=== PATIENT | female | born 1930 | race Caucasian/White ===

== ENCOUNTER 2016-08-17 13:55 | Outpatient (CLI) | payer MEDICARE, OTHER | END 2016-08-17 23:59 | DX: I10 Essential (primary) hypertension (principal); E78.5 Hyperlipidemia, unspecified; E03.9 Hypothyroidism, unspecified; E53.9 Vitamin B deficiency, unspecified ==

== ENCOUNTER → 2018-12-12 | Outpatient (CLI) | payer MEDICARE, OTHER | LOC: RT.N 13:00 | PROVIDERS: ATTEND Nurse Practitioner Gerontology | DX: I49.8 Other specified cardiac arrhythmias (principal); R42 Dizziness and giddiness; I10 Essential (primary) hypertension ==

== ENCOUNTER 2019-01-15 21:22 | Outpatient (CLI) | payer MEDICARE, OTHER | END 2019-01-15 21:23 | disposition critical access hospital (66) | LOC: EMS 21:22 | PROVIDERS: ATTEND Surgery | DX: R53.1 Weakness (principal); W19.XXXA Unspecified fall, initial encounter; Y92.009 Unspecified place in unspecified non-institutional (private) residence as the place of occurrence of the external cause | CPT/HCPCS: A0425; A0429 ==

== ENCOUNTER 2019-01-15 21:37 | Emergency (ER) | payer MEDICARE, OTHER ==
[2019-01-15 22:21] LABS: BILIRUBIN,URINE NEGATIVE (NEGATIVE); GLUCOSE, URINE (UA) 100 mg/dL (NEGATIVE); KETONES,URINE (UA) NEGATIVE (NEGATIVE); LEUKOCYTE ESTERASE, URINE NEGATIVE (NEGATIVE); NITRITE,URINE NEGATIVE (NEGATIVE); OCCULT BLOOD,URINE MODERATE (NEGATIVE); PH,URINE 5.5 PH (5.0-7.5); PROTEIN,URINE 100 mg/dL (NEGATIVE); UROBILINOGEN,URINE 0.2 (NORMAL) E.U./dL (NORMAL)
[2019-01-15 22:22] LABS: CLARITY,URINE CLEAR (CLEAR)
[2019-01-15 22:28] LABS: BACTERIA,URINE None Seen /HPF (None Seen); SQUAMOUS EPITHELIAL CELL,UR FEW Squamous (<= Few)
[2019-01-15 22:31] LABS: HGB - HEMOGLOBIN 16.6 g/dL (12.0-16.0); MONOCYTES % (AUTO) 9.1 %
[2019-01-15 22:41] LABS: ALBUMIN 4.3 g/dL (3.2-5.5); ALBUMIN/GLOBULIN RATIO 1.3 (1.0-2.2); CALCIUM 9.9 mg/dL (8.5-10.3); TOTAL PROTEIN 7.7 g/dL (6.7-8.2)
[2019-01-15 22:59] LABS: BASOPHILS # (AUTO) 0.1 10^3/uL (0.0-0.1); BASOPHILS % (AUTO) 0.4 %; EOSINOPHILS % (AUTO) 0.1 %; LYMPHOCYTES # (AUTO) 1.6 10^3/uL (1.5-3.5); LYMPHOCYTES % (AUTO) 11.1 %; MEAN CORPUSCULAR HEMOGLOBIN 29.7 pg (27.0-31.0); MEAN CORPUSCULAR VOLUME 92.8 fL (81.0-99.0); MEAN PLATELET VOLUME 10.7 fL (7.9-10.8); MONOCYTES # (AUTO) 1.3 10^3/uL (0.0-1.0); NEUTROPHILS # (AUTO) 11.1 10^3/uL (1.5-6.6); NEUTROPHILS % (AUTO) 78.7 %; PLT - PLATELET COUNT 143 10^3/uL (130-450); RED BLOOD COUNT 5.59 10^6/uL (4.20-5.40); RED CELL DISTRIBUTION WIDTH 13.4 % (12.0-15.0); WHITE BLOOD COUNT 14.1 x10^3/uL (4.8-10.8)
--- NOTE | 2019-01-15 23:25 | ED Physician Documentation ---
History of Present Illness - Stated complaint Stated Complaint: WEAKNESS/GLF - Chief complaint Chief Complaint: Neuro - History obtained from History obtained from: Patient - History of Present Illness Timing: How many days ago (couple of days ago) Pain level max: 0 Pain level now: 0 Improved by: lying still Worsened by: turning head, sitting up - Additonal information Additional information: c/o vertigo for few days, although she says she saw PMD last week for this. she says she has no medications for vertigo. usually uses cane for ambulation Review of Systems Constitutional: reports: Reviewed and negative Eyes: reports: Reviewed and negative Ears: reports: Reviewed and negative Cardiac: reports: Reviewed and negative Respiratory: reports: Reviewed and negative GI: reports: Reviewed and negative Neurologic: reports: Reviewed and negative PD PAST MEDICAL HISTORY - Past Medical History Past Medical History: Yes Cardiovascular: Hypertension Endocrine/Autoimmune: HyPOthyroidism - Past Surgical History Past Surgical History: No - Present Medications Home Medications: Ambulatory Orders Medication Instructions Recorded Confirmed Levothyroxine Sodium [Synthroid] 100 mcg PO QDAC 01/15/19 01/17/19 Calcium Carbonate/Vitamin D3 1 each PO DAILY 01/17/19 01/17/19 [Calcium 500-Vit D3 200 Tablet] Felodipine [Felodipine ER] 2.5 mg PO DAILY 01/17/19 01/17/19 Glucosamine Sulfate 500 mg PO DAILY 01/17/19 01/17/19 Meclizine HCl 25 mg PO Q8H PRN 01/17/19 01/17/19 - Allergies Allergies/Adverse Reactions: Allergies Allergy/AdvReac Type Severity Reaction Status Date / Time No Known Drug Allergies Allergy Verified 01/17/19 12:42 - Social History Does the pt smoke?: No Smoking Status: Never smoker Does the pt drink ETOH?: No Does the pt have substance abuse?: No - Immunizations Immunizations are current?: Yes - POLST Patient has POLST: Yes PD ED PE NORMAL - Vitals Vital signs reviewed: Yes - General General: Alert and oriented X 3, No acute distress, Well developed/nourished - HEENT HEENT: Atraumatic, PERRL, EOMI, Ears normal - Cardiac Cardiac: RRR, No murmur - Respiratory Respiratory: No respiratory distress, Clear bilaterally - Abdomen Abdomen: Soft, Non tender - Derm Derm: Normal color, Warm and dry - Neuro Neuro: Alert and oriented X 3, 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, No motor deficit, No sensory deficit, Normal speech Eye Opening: Spontaneous Motor: Obeys Commands Verbal: Oriented GCS Score: 15 Results - Vitals Vitals: Oxygen O2 Source Room air - EKG (time done) No standard instances Rate: Rate (enter#) (91) Rhythm: NSR [place]: LAD Intervals: Normal IA QRS: Normal Ischemia: Normal ST segments, Q waves (inferior leads) - Labs Labs: Laboratory Tests 01/15/19 01/15/19 01/15/19 22:10 22:24 22:24 WBC 14.1 H RBC 5.59 H Hgb 16.6 H Hct 51.9 H MCV 92.8 MCH 29.7 MCHC 32.0 RDW 13.4 Plt Count 143 MPV 10.7 Neut # (Auto) 11.1 H Lymph # (Auto) 1.6 [place] # (Auto) 1.3 H Eos # (Auto) 0.0 Baso # (Auto) 0.1 Absolute Nucleated RBC 0.00 Nucleated RBC % 0.0 Sodium 141 Potassium 3.2 L Chloride 100 L Carbon Dioxide 25 Anion Gap 16.0 H BUN 27 H Creatinine 1.0 Estimated GFR (MDRD) 53 L Glucose 150 H Calcium 9.9 Total Bilirubin 2.0 H AST 34 ALT 19 Alkaline Phosphatase 74 Total Creatine Kinase CK-MB (CK-2) Troponin I Total Protein 7.7 Albumin 4.3 Globulin 3.4 Albumin/Globulin Ratio 1.3 Lipase 31 TSH Free T4 T3 Uptake Urine Color YELLOW Urine Clarity CLEAR Urine pH 5.5 Ur Specific [place] 1.025 Urine Protein 100 H Urine Glucose (UA) 100 H Urine Ketones NEGATIVE Urine Occult Blood MODERATE H Urine Nitrite NEGATIVE Urine Bilirubin NEGATIVE Urine Urobilinogen 0.2 (NORMAL) Ur Leukocyte Esterase NEGATIVE Urine RBC 6-10 H Urine WBC 0-3 Ur Squamous Epith Cells FEW Squamous Urine Bacteria None Seen Ur Microscopic Review INDICATED Urine Culture Comments NOT INDICATED 01/15/19 01/15/19 01/15/19 23:55 23:55 23:56 WBC RBC Hgb Hct MCV MCH MCHC RDW Plt Count MPV Neut # (Auto) Lymph # (Auto) [place] # (Auto) Eos # (Auto) Baso # (Auto) Absolute Nucleated RBC Nucleated RBC % Sodium Potassium Chloride Carbon Dioxide Anion Gap BUN Creatinine Estimated GFR (MDRD) Glucose Calcium Total Bilirubin AST ALT Alkaline Phosphatase Total Creatine Kinase 1079 H* CK-MB (CK-2) Troponin I < 0.04 Total Protein Albumin Globulin Albumin/Globulin Ratio Lipase TSH 10.03 H Free T4 0.59 T3 Uptake 42.6 Urine Color Urine Clarity Urine pH Ur Specific [place] Urine Protein Urine Glucose (UA) Urine Ketones Urine Occult Blood Urine Nitrite Urine Bilirubin Urine Urobilinogen Ur Leukocyte Esterase Urine RBC Urine WBC Ur Squamous Epith Cells Urine Bacteria Ur Microscopic Review Urine Culture Comments 01/15/19 23:59 WBC RBC Hgb Hct MCV MCH MCHC RDW Plt Count MPV Neut # (Auto) Lymph # (Auto) [place] # (Auto) Eos # (Auto) Baso # (Auto) Absolute Nucleated RBC Nucleated RBC % Sodium Potassium Chloride Carbon Dioxide Anion Gap BUN Creatinine Estimated GFR (MDRD) Glucose Calcium Total Bilirubin AST ALT Alkaline Phosphatase Total Creatine Kinase CK-MB (CK-2) 16.2 H Troponin I Total Protein Albumin Globulin Albumin/Globulin Ratio Lipase TSH Free T4 T3 Uptake Urine Color Urine Clarity Urine pH Ur Specific [place] Urine Protein Urine Glucose (UA) Urine Ketones Urine Occult Blood Urine Nitrite Urine Bilirubin Urine Urobilinogen Ur Leukocyte Esterase Urine RBC Urine WBC Ur Squamous Epith Cells Urine Bacteria Ur Microscopic Review Urine Culture Comments - Rads (name of study) CT head Radiology: Prelim report reviewed, See rad report PD MEDICAL DECISION MAKING - ED course Complexity details: reviewed results, re-evaluated patient, considered differential, d/w patient ED course: improved after meclizine. reassuring test results Departure - Departure Disposition: 01 Home, Self Care Clinical Impression: Dizziness Condition: Good Health Concerns: dizziness Plan of Treatment: antivertigo medication as needed per prescription Care Goals: resolution of symptoms Assessment: see diagnosis Instructions: ED Vertigo Unspecified Follow-Up: Maryellen Rodriguez ARNP [Primary Care Provider] - Discharge Date/Time: 01/16/19 04:05
[2019-01-15] MEDS ORDERED: MECLIZINE 12.5 MG TABLET PO STA (23:53)
--- NOTE | 2019-01-16 01:03 | CT Report ---
Reason: dizziness Procedure Date: 01/16/2019 Accession Number: [id number] / [id number] Procedure: CT - HEAD WO CPT Code: FULL RESULT: EXAM: CT HEAD EXAM DATE: 01/16/2019 12:42 AM. CLINICAL HISTORY: Dizziness. COMPARISON: 04/24/2009 7:38 PM MRI BRAIN W/O CONTRAST 09/29/2011 1:32 PM MRI ANGIO HEAD W/O CONT 10/17/2011 3:22 PM. TECHNIQUE: Multiaxial CT images were obtained from the foramen magnum to the vertex. Reformats: Sagittal and coronal. IV contrast: None. In accordance with CT protocol optimization, one or more of the following dose reduction techniques were utilized for this exam: automated exposure control, adjustment of mA and/or KV based on patient size, or use of iterative reconstructive technique. FINDINGS: Parenchyma: No intraparenchymal hemorrhage. No evidence of mass, midline shift, or CT findings of acute infarction. Kenny-white differentiation is distinct. Moderate chronic microvascular ischemic change in the supratentorial white matter has progressed compared to the prior CT in 2008. 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 Extraaxial Spaces: Moderate generalized cerebral volume loss has slightly progressed compared to the prior CT and MRI. No subdural or epidural collections identified. A rounded 5 mm hyperdense focus in the posterior left sylvian fissure (image 14, series 3) is unchanged compared to the CT in 2008. 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 Ventricles: No hydrocephalus. Sinuses and Orbits: Imaged paranasal sinuses, orbits, and mastoids show no significant abnormality. Bones: No evidence of fracture or calvarial defect. Other: None. IMPRESSION: 1. No acute intracranial abnormality. 2. No intracranial mass lesion, mass-effect, or hydrocephalus. 3. Moderate generalized cerebral volume loss and chronic microvascular change has progressed compared to the prior MRI and CT. 4. 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 5. A 5 mm hyperdensity in the posterior left sylvian fissure is unchanged compared to the prior CT in 2008. This correlates with a distal left MCA aneurysm seen on the MRA in 2012. RADIA
[2019-01-16 01:24] LABS: T3 UPTAKE 42.6 % (32.0-48.4)
[2019-01-16 01:28] LABS: THYROID STIMULATING HORMONE 10.03 uIU/mL (0.34-5.60)
[2019-01-16 01:30] LABS: FREE T4 (FREE THYROXINE) 0.59 ng/dL (0.58-1.64)
[2019-01-16] MEDS ORDERED: SODIUM CHLORIDE 0.9% 500 ML IV STA (01:58)
[2019-01-16] MEDS ORDERED: MECLIZINE 12.5 MG TABLET PO STA (02:12)
[2019-01-16 03:58] VITALS: BP 156/75
== END 2019-01-16 04:05 | disposition home or self-care (01) ==
LOC: EDUNIT# → ED 21:37
DX: R42 Dizziness and giddiness (principal); I10 Essential (primary) hypertension
CPT/HCPCS: 36415; 70450; 81001; 82550; 82553; 83690; 84439; 84479; 84484; 93005; 96360; 99283; 99285; A9270; 80053; 81003; 84443; 85025; 87086

== ENCOUNTER 2019-01-17 12:19 | Outpatient (CLI) | payer MEDICARE, OTHER | END 2019-01-17 12:20 | disposition critical access hospital (66) | LOC: EMS 12:19 | PROVIDERS: ATTEND Surgery | DX: R53.1 Weakness (principal) | CPT/HCPCS: A0425; A0427 ==

== ENCOUNTER 2019-01-17 12:36 | Inpatient (IN) | payer MEDICARE, OTHER ==
--- NOTE | 2019-01-17 12:45 | ED Physician Documentation ---
History of Present Illness - Stated complaint Stated Complaint: GLF - Chief complaint Chief Complaint: Ext Problem - History obtained from History obtained from: Patient - Additonal information Additional information: Patient is a 88-year-old female with history of recurrent falls presenting from home with likely fall last evening and waking this morning on the bathroom floor. Patient denies any known trauma, fall, or other inciting incident. Patient lives with her adult son, who is also in the ED for other complaints. Patient denies headache, neck pain, back pain, chest or abdominal pain, vo miting, urinary changes, or stool changes. Patient denies any injuries. No other improving or worsening factors noted. No known anticoagulation. Review of Systems Constitutional: denies: Fever Cardiac: denies: Chest pain / pressure Respiratory: denies: Dyspnea, Cough GI: denies: Abdominal Pain, Nausea, Vomiting, Diarrhea : denies: Dysuria Musculoskeletal: denies: Neck pain, Back pain, Extremity pain Neurologic: denies: Generalized weakness, Focal weakness, Numbness, Headache, Head injury, LOC PD PAST MEDICAL HISTORY - Past Medical History Past Medical History: Yes Cardiovascular: Hypertension Endocrine/Autoimmune: HyPOthyroidism - Past Surgical History Past Surgical History: No - Present Medications Home Medications: Ambulatory Orders Medication Instructions Recorded Confirmed Felodipine [Felodipine ER] 01/15/19 Levothyroxine Sodium [Synthroid] 01/15/19 Meclizine HCl 12.5 - 25 mg PO Q6HR PRN #20 tablet 01/16/19 - Allergies Allergies/Adverse Reactions: Allergies Allergy/AdvReac Type Severity Reaction Status Date / Time No Known Drug Allergies Allergy Verified 01/17/19 12:42 - Social History Does the pt smoke?: No Smoking Status: Never smoker Does the pt drink ETOH?: No Does the pt have substance abuse?: No - Immunizations Immunizations are current?: Yes - POLST Patient has POLST: Yes PD ED PE NORMAL - Vitals Vital signs reviewed: Yes - General General: Alert and oriented X 3, No acute distress, Well developed/nourished - HEENT HEENT: Atraumatic, Moist mucous membranes, Pharynx benign, Dentition benign - Neck Neck: No bony TTP - Cardiac Cardiac: RRR, No murmur - Respiratory Respiratory: No respiratory distress, Clear bilaterally - Abdomen Abdomen: Soft, Non tender, Non distended - Derm Derm: Normal color, Warm and dry, No rash - Extremities Extremities: No deformity, No tenderness to palpate - Neuro Neuro: Alert and oriented X 3, No motor deficit, No sensory deficit, Normal speech - Psych Psych: Normal mood, Normal affect Results - Vitals Vitals: Vital Signs - 24 hr 01/17/19 01/17/19 12:36 14:22 Temperature 36.8 C Heart Rate 84 95 Respiratory 16 19 Rate Blood Pressure 172/84 H 159/98 H O2 Saturation 98 97 Oxygen O2 Source Room air - EKG (time done) 1242 Rate: Rate (enter#) (114) Rhythm: Sinus tachycardia Intervals: Prolonged QT Other comments: Other comments (PVCs) - Labs Labs: Laboratory Tests 01/17/19 01/17/19 01/17/19 14:00 14:00 14:00 WBC 15.1 H RBC 5.20 Hgb 15.9 Hct 47.8 H MCV 91.9 MCH 30.6 MCHC 33.3 RDW 13.6 Plt Count 130 MPV 10.9 H Neut # (Auto) 11.9 H Lymph # (Auto) 1.6 [place] # (Auto) 1.4 H Eos # (Auto) 0.0 Baso # (Auto) 0.0 Absolute Nucleated RBC 0.00 Nucleated RBC % 0.0 Sodium 141 Potassium 3.5 Chloride 104 Carbon Dioxide 24 Anion Gap 13.0 BUN 30 H Creatinine 1.0 Estimated GFR (MDRD) 53 L Glucose 142 H Calcium 9.4 Total Bilirubin 1.8 H AST 103 H ALT 52 Alkaline Phosphatase 73 Total Creatine Kinase Troponin I < 0.04 Total Protein 7.3 Albumin 3.8 Globulin 3.5 Albumin/Globulin Ratio 1.1 Lipase 31 Urine Color Urine Clarity Urine pH Ur Specific [place] Urine Protein Urine Glucose (UA) Urine Ketones Urine Occult Blood Urine Nitrite Urine Bilirubin Urine Urobilinogen Ur Leukocyte Esterase Urine RBC Urine WBC Ur Squamous Epith Cells Urine Bacteria Ur Microscopic Review Urine Culture Comments 01/17/19 01/17/19 14:00 14:20 WBC RBC Hgb Hct MCV MCH MCHC RDW Plt Count MPV Neut # (Auto) Lymph # (Auto) [place] # (Auto) Eos # (Auto) Baso # (Auto) Absolute Nucleated RBC Nucleated RBC % Sodium Potassium Chloride Carbon Dioxide Anion Gap BUN Creatinine Estimated GFR (MDRD) Glucose Calcium Total Bilirubin AST ALT Alkaline Phosphatase Total Creatine Kinase 3143 H* Troponin I Total Protein Albumin Globulin Albumin/Globulin Ratio Lipase Urine Color YELLOW Urine Clarity SL Urine pH 5.0 Ur Specific [place] >=1.030 H Urine Protein 100 H Urine Glucose (UA) NEGATIVE Urine Ketones 15 H Urine Occult Blood MODERATE H Urine Nitrite NEGATIVE Urine Bilirubin NEGATIVE Urine Urobilinogen 0.2 (NORMAL) Ur Leukocyte Esterase NEGATIVE Urine RBC 0-5 Urine WBC 11-25 H Ur Squamous Epith Cells NONE SEEN Urine Bacteria Many H Ur Microscopic Review INDICATED Urine Culture Comments INDICATED PD MEDICAL DECISION MAKING - ED course Complexity details: reviewed old records, reviewed results, re-evaluated patient, considered differential, d/w patient, d/w networks computer consultant ED course: Patient presenting after likely ground-level fall and being on the floor overnight. Patient has no complaints do not find obvious signs of trauma, but feel appropriate to perform imaging of chest with x-ray and brain with CT head. Imaging did not find evidence of acute or otherwise complicated findings, but chronic changes and other incidental findings that are similar to previous evaluations. Screening lab work also obtained which reflected troponin within normal limits, leukocytosis, elevated CK. Creatinine within normal limits. Urinalysis found presence of ketones and blood. Patient continued on IV fluids. She did not require other medications at this time. Feel the patient is experiencing rhabdomyolysis given her being on the ground overnight. Nursing staff did attempt to help patient ambulate, but she had significant difficulty. Patient's trichologist is also in the ED. At this time, feel most appropriate to admit for further treatment and work-up. Discussed with hospitalist, who is agreeable to admission. Departure - Departure Disposition: [facility] DC/Xfer Clinical Impression: Rhabdomyolysis Qualifiers: Rhabdomyolysis type: traumatic Encounter type: initial encounter Qualified Code(s): T79.6XXA - Traumatic ischemia of muscle, initial encounter Condition: Fair
[2019-01-17] MEDS ORDERED: SODIUM CHLORIDE 0.9% 1,000 ML IV ONE ×3 (12:51→16:33)
--- NOTE | 2019-01-17 14:01 | CT Report ---
Reason: fall and on floor overnight Procedure Date: 01/17/2019 Accession Number: [id number] / [id number] Procedure: CT - HEAD WO CPT Code: FULL RESULT: EXAM: CT HEAD EXAM DATE: 01/17/2019 01:49 PM. CLINICAL HISTORY: Fall and on floor overnight. Dizziness. COMPARISON: HEAD W/O 01/16/2019 12:36 AM. TECHNIQUE: Multiaxial CT images were obtained from the foramen magnum to the vertex. Reformats: Sagittal and coronal. IV contrast: None. In accordance with CT protocol optimization, one or more of the following dose reduction techniques were utilized for this exam: automated exposure control, adjustment of mA and/or KV based on patient size, or use of iterative reconstructive technique. FINDINGS: Parenchyma: No intraparenchymal hemorrhage. No evidence of mass, midline shift. Kenny-white differentiation is distinct. Extraaxial Spaces: Basal cisterns are patent. No subdural or epidural collections identified. Ventricles: Normal in size and position. Sinuses and Orbits: Imaged paranasal sinuses, orbits, and mastoids show no significant abnormality. Bones: No evidence of fracture or calvarial defect. Other: Stable extracranial 1.1 cm round hyperdense lesion near the vertex on the left, likely a sebaceous cyst. IMPRESSION: No acute intracranial abnormality is detected. RADIA
--- NOTE | 2019-01-17 14:28 | XRAY Report ---
Reason: chest pain Procedure Date: 01/17/2019 Accession Number: [id number] / [id number] Procedure: XR - Chest 1 View X-Ray CPT Code: 49038 FULL RESULT: EXAM: CHEST RADIOGRAPHY EXAM DATE: 01/17/2019 01:45 PM. CLINICAL HISTORY: Chest pain. COMPARISON: 04/24/2009 7:00 PM. TECHNIQUE: 1 view. FINDINGS: The radiograph is markedly limited by apical lordotic positioning, rotation and underpenetration as well as single view AP portable technique. Lungs/Pleura: The left lung base is not effectively evaluated. Visualized aerated right lung and visualized aerated left lung show no consolidation or overt pulmonary edema. Within exam limitations, no large pleural effusion or pneumothorax. Mediastinum: Tortuous aorta is again seen. Size of the cardiac silhouette is not effectively evaluated. Other: None. IMPRESSION: Markedly limited examination as described above with no definite acute cardiopulmonary abnormality detected as seen. Consider formal PA and lateral radiographs. RADIA
[2019-01-17 14:34] LABS: BILIRUBIN,URINE NEGATIVE (NEGATIVE); GLUCOSE, URINE (UA) NEGATIVE (NEGATIVE); KETONES,URINE (UA) 15 mg/dL (NEGATIVE); LEUKOCYTE ESTERASE, URINE NEGATIVE (NEGATIVE); NITRITE,URINE NEGATIVE (NEGATIVE); OCCULT BLOOD,URINE MODERATE (NEGATIVE); PROTEIN,URINE 100 mg/dL (NEGATIVE); UROBILINOGEN,URINE 0.2 (NORMAL) E.U./dL (NORMAL)
[2019-01-17 14:35] LABS: EOSINOPHILS % (AUTO) 0.1 %; MEAN CORPUSCULAR HGB CONC 33.3 g/dL (32.0-36.0); RED CELL DISTRIBUTION WIDTH 13.6 % (12.0-15.0)
[2019-01-17 14:36] LABS: CLARITY,URINE SL (CLEAR)
[2019-01-17 14:39] LABS: BASOPHILS % (AUTO) 0.2 %; HGB - HEMOGLOBIN 15.9 g/dL (12.0-16.0); LYMPHOCYTES # (AUTO) 1.6 10^3/uL (1.5-3.5); LYMPHOCYTES % (AUTO) 10.5 %; MEAN CORPUSCULAR HEMOGLOBIN 30.6 pg (27.0-31.0); MEAN CORPUSCULAR VOLUME 91.9 fL (81.0-99.0); MEAN PLATELET VOLUME 10.9 fL (7.9-10.8); MONOCYTES # (AUTO) 1.4 10^3/uL (0.0-1.0); MONOCYTES % (AUTO) 9.3 %; NEUTROPHILS # (AUTO) 11.9 10^3/uL (1.5-6.6); NEUTROPHILS % (AUTO) 79.1 %; PLT - PLATELET COUNT 130 10^3/uL (130-450); WHITE BLOOD COUNT 15.1 x10^3/uL (4.8-10.8)
[2019-01-17 14:41] LABS: ALBUMIN 3.8 g/dL (3.2-5.5); ALBUMIN/GLOBULIN RATIO 1.1 (1.0-2.2); BILIRUBIN,TOTAL 1.8 mg/dL (0.2-1.0); CALCIUM 9.4 mg/dL (8.5-10.3); TOTAL PROTEIN 7.3 g/dL (6.7-8.2)
[2019-01-17 14:43] LABS: BACTERIA,URINE Many /HPF (None Seen); RBC,URINE 0-5 /HPF (0-5); SQUAMOUS EPITHELIAL CELL,UR NONE SEEN (<= Few)
[2019-01-17] MEDS ORDERED: SODIUM CHLORIDE FLUSH 0.9% 10 ML SYRINGE IVP PRN (17:04)
[2019-01-17] MEDS ORDERED: ONDANSETRON 4 MG/2 ML VIAL IVP PRN (17:04)
[2019-01-17] MEDS ORDERED: MECLIZINE 12.5 MG TABLET PO PRN (17:12)
[2019-01-17] MEDS ORDERED: cefTRIAXone 1 GM VIAL IVP SCH (17:15)
[2019-01-17] MEDS ORDERED: hydrALAZINE INJ 20 MG/ML VIAL IVP PRN (17:16)
--- NOTE | 2019-01-17 17:40 | ED Physician Documentation ---
ED Addendum - Addendum Addendum: 01/17/19 17:39 Patient placed in observation per hospital team.
--- NOTE | 2019-01-17 17:45 | HISTORY & PHYSICAL EXAMINATION ---
Chief Complaint - Chief Complaint Chief Complaint: fall History of Present Illness - Admitted From Admitted From:: ER - History of Present Illness HPI Comment/Other: Ms. Miller is a 88-yrs-old female with a PMH significant of HTN, hypothyroidism, who present ER complain of fall and weakness. pt report she had a fall on Sunday01/15/19 and had a similar fall on last night. She report when she went to bathroom she felt dizziness, then she lean down against the wall to the bathroom ground. she felt very tired and she can not stand up and lay at the bathroom ground. she did not know how she was brought to the ER. She denies dysuria or hematuria. She denies any injury, headache, fever, chill, chest pain, abdominal pain, nausea, vomiting. She report " I am health, I will choose full code now." Pt's Lab test today reveal CK is over 3000, elevated WBC to 15, elevated bili and AST. CT of head and CXR are unremarkable. pt was admitted for rhabdomyolysis, weakness anf fall. History - Past Medical History Cardiovascular: reports: Hypertension Endocrine/Autoimmune: reports: HyPOthyroidism MRSA Hx?: No - Family & Social History Family History Comment/Other: pt had two children, one son is living with her and daughter is also living at the [facility]. she did not remember her parent medical conditions. Social History Notes: she denies smoke, alcohol and drug abuse - POLST Patient has POLST: Yes Meds/Allgy - Home Medications Home Medications: Ambulatory Orders Medication Instructions Recorded Confirmed Levothyroxine Sodium [Synthroid] 100 mcg PO QDAC 01/15/19 01/17/19 Calcium Carbonate/Vitamin D3 1 each PO DAILY 01/17/19 01/17/19 [Calcium 500-Vit D3 200 Tablet] Felodipine [Felodipine ER] 2.5 mg PO DAILY 01/17/19 01/17/19 Glucosamine Sulfate 500 mg PO DAILY 01/17/19 01/17/19 Meclizine HCl 25 mg PO Q8H PRN 01/17/19 01/17/19 - Allergies Allergies/Adverse Reactions: Allergies Allergy/AdvReac Type Severity Reaction Status Date / Time No Known Drug Allergies Allergy Verified 01/17/19 12:42 Review of Systems - Constitutional Constitutional: reports: Fatigue, Weakness. denies: Fever, Chills, Malaise, Poor appetite, Diaphoresis, Night sweats - Eyes Eyes: denies: Pain, Irritation, Amaurosis, Blurred vision, Spots in vision, F ield loss, Vision loss, Dipolpia - Ears, Nose & Throat Ears, Nose & Throat: denies: Ear pain, Hearing loss, Hearing aids, Tinnitus, Vertigo, Nasal pain, Nasal discharge, Nosebleeds, Nasal obstruction, Nasal congestion, Postnasal drainage, Dentures, Sore throat, Hoarseness, Mouth lesions, Bleeding gums - Cardiovascular Cariovascular: denies: Irregular heart rate, Palpitations, Chest pain, Edema, Lightheadedness, Syncope, Exertional dyspnea, Decr. exercise tolerance - Respiratory Respiratory: denies: Cough, Sputum production, Wheezing, Snoring, Hemoptysis, Orthopnea, SOB at rest, SOB with exertion - Gastrointestinal Gastrointestinal: denies: Abdominal pain, Abdominal distention, Constipation, Diarrhea, Change in bowel habits, Rectal bleeding, Black stools, Bloody stools, Nausea, Vomiting, Bile emesis, Dayron blood emesis, Coffee grounds emesis, Reflux/heartburn - Genitourinary Genitourinary: reports: Urgency. denies: Dysuria, Frequency, Hematuria, Incontinence, Flank pain, Nocturia, Urethral discharge - Musculoskeletal Musculoskeletal: denies: Muscle pain, Back pain, Muscle aches, Stiffness, Limited range of motion, Muscle weakness, Gout, Joint pain - Integumentary Integumentary: denies: Rash, Pruritis, Lesions, Dryness, Lumps, Acne, Pigment changes, Nail changes - Neurological Neurological: reports: General weakness, Dizziness. denies: Focal weakness, Headache, Numbness, Memory problems, Pre-existing deficit, Abnormal gait, Seizures, Incoordination, Slurred speech - Psychiatric Psychiatric: denies: Depression, Anxiety, Suicidal, Delusions, Hallucinations, Homicidal - Endocrine Endocrine: denies: Polyuria, Polydypsia, Polyphagia, Intolerance to cold - Hematologic/Lymphatic Hematologic/Lymphatic: denies: Anemia, Bruising, Petechiae, Blood clots, Lymphadenopathy, Bleeding tendencies Exam - Vital Signs Reviewed Vital Signs: Yes Vital Signs: Vital Signs x48h Temp Pulse Resp BP Pulse Ox 01/17/19 14:22 95 19 159/98 H 97 01/17/19 12:36 36.8 C 84 16 172/84 H 98 - Physical Exam General Appearance: positive: Alert, Mild distress. negative: Lethargic Eyes Bilateral: positive: Normal inspection, PERRL, No lid inflammation, Conjunctivae nml ENT: positive: ENT inspection nml, Pharynx nml, No signs of dehydration. negative: Purulent nasal drainage, Pharyngeal erythema, Oral lesions Neck: positive: Nml inspection, Thyroid nml, No JVD, Trachea midline. negative: Thyromegaly, Lymphadenopathy (R), Lymphadenopathy (L), Stiff neck, Swelling/bruising, Tracheal deviation Respiratory: positive: Chest non-tender, No respiratory distress, Breath sounds nml. negative: Wheezes, Rales, Rhonchi Cardiovascular: positive: Regular rate & rhythm, No murmur, No gallop. negative: Irregularly irregular, Extrasystoles, Tachycardia, Bradycardia, JVD present, Systolic murmur, Diastolic murmur Peripheral Pulses: positive: 2+ Abdomen: positive: Non-tender, No organomegaly, Nml bowel sounds, No distention. negative: Tenderness, Guarding, Rebound Back: positive: Nml inspection. negative: CVA tenderness (R), CVA tenderness (L) Skin: positive: Color nml, No rash, Warm, Dry. negative: Cyanosis, Diaphoresis, Pallor Extremities: positive: Non-tender, Nml appearance. negative: Calf tenderness, Joint swelling, Charla's sign/cords Neurologic/Psychiatric: positive: Oriented x3, Sensation nml, Mood/affect nml. negative: Weakness, Sensory loss, Facial droop, Slurred/abnml speech, Depressed mood/affect Sepsis Event Note (H) - Evaluation Current Stage of Sepsis: Ruled out Conclusion/Plan - Problem List (1) Rhabdomyolysis Conclusion/Plan: pt report she stay at ground for overnight after she lean down to the ground. CK is 3100. Creatinine is 1 IVF of NS check CK lab monitor renal function Qualifiers: Rhabdomyolysis type: traumatic Encounter type: initial encounter Qualified Code(s): T79.6XXA - Traumatic ischemia of muscle, initial encounter (2) Dizziness Conclusion/Plan: pt report he felt very dizziness when he went to bathroom and lean down to ground. pt denies chest pain, headache. No new medication she took now check ECHO, followup fall precaution on tele and vital monitor (3) UTI (urinary tract infection) Conclusion/Plan: pt had WBC had 14 on 01/15/19, 15 on today. UA indicate bacteria and high WBC at urine treat with antibiotics until UA culture revealed (4) HTN (hypertension) Conclusion/Plan: pt has elevated BP, reconcile home BP, vital monitor, PRN hydralazine (5) Hypothyroidism Conclusion/Plan: will check TSH, reconcile synthyroid (6) Full code status Conclusion/Plan: pt wish she had full code - Lab Results Fish Bones: 01/17/19 14:00 01/17/19 14:00 Core Measures - Anticipated LOS I expect patient to be DC'd or transferred within 96 hours.: Yes - DVT/VTE - Prophylaxis VTE/DVT Device ordered at admit?: Yes VTE/DVT Prophylaxis med ordered at admit?: Yes
[2019-01-17] MEDS: SODIUM CHLORIDE 0.9% 1,000 ML IV SCH (18:56)
[2019-01-17] MEDS: cefTRIAXone 1 GM in SODIUM CHLORIDE 0.9% MINIBAG 100 ML IV SCH (18:56)
[2019-01-17] MEDS: FELODIPINE ER 2.5 MG TABLET PO SCH (19:40)
[2019-01-17] MEDS: LEVOTHYROXINE 100 MCG TABLET PO SCH (19:41)
[2019-01-17] MEDS: ACETAMINOPHEN 325 MG TABLET PO PRN (21:56)
[2019-01-17] MEDS: FAMOTIDINE 20 MG TABLET PO SCH (21:56)
--- NOTE | 2019-01-17 22:00 | Ultrasound Report ---
Reason: elevated Bili and AST, jaundice Procedure Date: 01/17/2019 Accession Number: [id number] / [id number] Procedure: US - Abdomen Limited CPT Code: FULL RESULT: EXAM: ABDOMEN ULTRASOUND LIMITED, RUQ EXAM DATE: 01/17/2019 06:28 PM. CLINICAL HISTORY: Elevated Bili and AST, jaundice. COMPARISON: None. TECHNIQUE: Real-time scanning was performed with static images obtained. FINDINGS: Liver: Normal in size and echotexture. Right lobe is 12.9 cm. Main portal vein flow: Hepatopetal. Gallbladder: Cholelithiasis. No abnormal wall thickening or sonographic Conley sign. Biliary System: CBD measures 6 mm. No intrahepatic ductal dilatation. Other: Mild hydronephrosis. IMPRESSION: Cholelithiasis. No sonographic evidence for cholecystitis. Mild right hydronephrosis. [facility]
[2019-01-18] MEDS: SODIUM CHLORIDE FLUSH 0.9% 10 ML SYRINGE IVP SCH ×4 (00:56→23:23)
[2019-01-18] MEDS: SODIUM CHLORIDE 0.9% 1,000 ML IV SCH ×3 (03:26→21:44)
[2019-01-18] MEDS: LEVOTHYROXINE 100 MCG TABLET PO SCH (06:10)
[2019-01-18 07:00] LABS: BASOPHILS % (AUTO) 0.3 %; EOSINOPHILS # (AUTO) 0.1 10^3/uL (0.0-0.7); HGB - HEMOGLOBIN 13.6 g/dL (12.0-16.0); LYMPHOCYTES # (AUTO) 1.4 10^3/uL (1.5-3.5); LYMPHOCYTES % (AUTO) 13.8 %; MEAN CORPUSCULAR HEMOGLOBIN 30.4 pg (27.0-31.0); MEAN CORPUSCULAR HGB CONC 32.5 g/dL (32.0-36.0); MEAN CORPUSCULAR VOLUME 93.5 fL (81.0-99.0); MONOCYTES # (AUTO) 1.1 10^3/uL (0.0-1.0); MONOCYTES % (AUTO) 10.8 %; NEUTROPHILS # (AUTO) 7.7 10^3/uL (1.5-6.6); NEUTROPHILS % (AUTO) 73.8 %; PLT - PLATELET COUNT 100 10^3/uL (130-450); RED BLOOD COUNT 4.48 10^6/uL (4.20-5.40); RED CELL DISTRIBUTION WIDTH 13.9 % (12.0-15.0); WHITE BLOOD COUNT 10.4 x10^3/uL (4.8-10.8)
[2019-01-18 07:25] LABS: ALBUMIN 2.9 g/dL (3.2-5.5); BILIRUBIN,TOTAL 1.3 mg/dL (0.2-1.0); CALCIUM 8.3 mg/dL (8.5-10.3); CREATININE 0.9 mg/dL (0.4-1.0); MAGNESIUM 1.6 mg/dL (1.7-2.8); TOTAL PROTEIN 5.7 g/dL (6.7-8.2)
[2019-01-18] MEDS ORDERED: POTASSIUM CHLORIDE 20 MEQ TABLET PO ONE (09:09)
[2019-01-18] MEDS: CHOLECALCIFEROL 1,000 UNIT TABLET PO SCH (09:18)
[2019-01-18] MEDS: FAMOTIDINE 20 MG TABLET PO SCH ×2 (09:18→21:44)
[2019-01-18] MEDS: cefTRIAXone 1 GM in SODIUM CHLORIDE 0.9% MINIBAG 100 ML IV SCH (09:21)
[2019-01-18] MEDS: ENOXAPARIN 40 MG/0.4 ML SYRINGE SUBQ SCH (10:27)
[2019-01-18] MEDS: FELODIPINE ER 2.5 MG TABLET PO SCH (10:27)
[2019-01-18] MEDS ORDERED: MAGNESIUM SULFATE 1 GM in SODIUM CHLORIDE 0.9% 50 ML IV ONE (11:00)
[2019-01-18] MEDS: ACETAMINOPHEN 325 MG TABLET PO PRN (11:15)
--- NOTE | 2019-01-18 12:44 | XRAY Report ---
Reason: SOB Procedure Date: 01/18/2019 Accession Number: [id number] / [id number] Procedure: XR - Chest 1 View X-Ray CPT Code: 79584 FULL RESULT: EXAM: CHEST RADIOGRAPHY EXAM DATE: 01/18/2019 09:37 AM. CLINICAL HISTORY: SOB. COMPARISON: CHEST 1 VIEW 01/17/2019 1:54 PM. TECHNIQUE: 1 view. FINDINGS: Lungs/Pleura: Improved aeration in the left lung base. No new focal consolidation. Mediastinum: Within exam limitations, the cardiomediastinal contour is normal. Other: Surgical clips again noted in the left breast. IMPRESSION: Improved aeration in the left lung base with no new focal consolidation. [facility]
[2019-01-18] MEDS: POLYETHYLENE GLYCOL 3350 17 GM PACKET PO SCH (13:52)
[2019-01-18] MEDS: CALCIUM CARB (OYSTER SHELL) 500 MG TABLET PO SCH (13:53)
[2019-01-18] MEDS ORDERED: POTASSIUM CHLORIDE 10 MEQ CAPSULE PO ONE (14:00)
--- NOTE | 2019-01-18 18:23 | PROVIDER PROGRESS NOTE ---
Subjective - Prog Note Date Prog Note Date: 01/18/19 - Subjective Pt reports feeling: Improved Subjective: pt report she feel better than yesterday, but still feel weakness. she denies fever, chill, chest pain, SOB, abdominal pain and back pain. Current Medications - Current Medications Current Medications: Active Medications Acetaminophen (Tylenol) 650 mg PO Q4HR PRN PRN Reason: Pain 1 to 4 Last Admin: 01/18/19 11:15 Dose: 650 mg Calcium Carbonate/Glycine (Oysco-500) 500 mg PO DAILY [facility] Last Admin: 01/19/19 09:02 Dose: 500 mg Cholecalciferol (Vitamin D3) 1,000 unit PO DAILY [facility] Last Admin: 01/19/19 09:02 Dose: 1,000 unit Enoxaparin Sodium (Lovenox) 40 mg SUBQ DAILY [facility] Last Admin: 01/19/19 07:38 Dose: Not Given Famotidine (Pepcid) 20 mg PO BID [facility] Last Admin: 01/19/19 09:02 Dose: 20 mg Felodipine (Plendil) 2.5 mg PO DAILY [facility] Last Admin: 01/19/19 09:02 Dose: 2.5 mg Hydralazine HCl (Apresoline Inj) 10 mg IVP QID PRN PRN Reason: Hypertensive Emergency Sodium Chloride (Normal Saline 0.9%) 1,000 mls @ 125 mls/hr IV .Q8H [facility] Last Admin: 01/19/19 05:43 Dose: 125 mls/hr Ceftriaxone Sodium 1 gm/ (Sodium Chloride) 100 mls @ 200 mls/hr IV DAILY [facility] Last Infusion: 01/19/19 09:40 Dose: Infused Levothyroxine Sodium (Synthroid) 100 mcg PO QDAC [facility] Last Admin: 01/19/19 05:43 Dose: 100 mcg Meclizine HCl (Antivert) 12.5 mg PO Q6HR PRN PRN Reason: Dizziness Ondansetron HCl (Zofran Inj) 4 mg IVP Q6HR PRN PRN Reason: Nausea / Vomiting Polyethylene Glycol (Miralax) 17 gm PO DAILY [facility] Last Admin: 01/19/19 09:03 Dose: 17 gm Sodium Chloride (Normal Saline Flush 0.9%) 10 ml IVP PRN PRN PRN Reason: NEEDED PER PROVIDER ORDERS Last Admin: 01/17/19 18:56 Dose: 10 ml Sodium Chloride (Normal Saline Flush 0.9%) 10 ml IVP 0100,0900,1700 [facility] Last Admin: 01/19/19 07:36 Dose: Not Given Levothyroxine Sodium [Synthroid] 100 mcg PO QDAC 01/15/19 Calcium Carbonate/Vitamin D3 [Calcium 500-Vit D3 200 Tablet] 1 each PO DAILY 01/17/19 Felodipine [Felodipine ER] 2.5 mg PO DAILY 01/17/19 Glucosamine Sulfate 500 mg PO DAILY 01/17/19 Meclizine HCl 25 mg PO Q8H PRN 01/17/19 Objective - Vital Signs/Intake & Output Reviewed Vital Signs: Yes Vital Signs: Vital Signs x48h Temp Pulse Resp BP Pulse Ox 01/18/19 15:31 36.7 C 89 18 145/72 H 98 01/18/19 12:06 36.5 C 89 19 120/59 L 93 Intake & Output: Intake & Output 01/15/19 01/16/19 01/17/19 01/18/19 23:59 23:59 23:59 23:59 Intake Total 3202.083 2321.167 Output Total 800 Balance 3202.083 1521.167 - Objective General Appearance: positive: No acute distress, Alert. negative: Lethargic Eyes Bilateral: positive: Normal inspection, PERRL, No lid inflammation, Conjunctivae nml ENT: positive: ENT inspection nml, Pharynx nml, No signs of dehydration. negative: Purulent nasal drainage, Pharyngeal erythema, Oral lesions Neck: positive: Nml inspection, Thyroid nml, No JVD, Trachea midline. negative: Thyromegaly, Lymphadenopathy (R), Lymphadenopathy (L), Stiff neck, Swelling/bruising, Tracheal deviation Respiratory: positive: Chest non-tender, No respiratory distress, Breath sounds nml. negative: Wheezes, Rales, Rhonchi Cardiovascular: positive: Regular rate & rhythm, No murmur, No gallop, Irregularly irregular. negative: Extrasystoles, Tachycardia, Bradycardia, JVD present, Systolic murmur, Diastolic murmur Peripheral Pulses: 2+ Radial (R), 2+ Radial (L), 2+ Dorsalis pedis (R), 2+ Dorsalis pedis (L) Abdomen: positive: Non-tender, No organomegaly, Nml bowel sounds, No distention. negative: Tenderness, Guarding, Rebound Back: positive: Nml inspection. negative: CVA tenderness (R), CVA tenderness (L) Skin: positive: Color nml, No rash, Warm, Dry. negative: Cyanosis, Diaphoresis, Pallor Extremities: positive: Non-tender, Full ROM, Nml appearance. negative: Calf tenderness, Joint swelling, Charla's sign/cords Neurologic/Psychiatric: positive: Oriented x3, Sensation nml, Mood/affect nml. negative: Weakness, Sensory loss, Facial droop, Slurred/abnml speech, Depressed mood/affect - Lab Results Fish Bones: 01/19/19 06:25 01/19/19 06:25 Other Labs: Lab Results x24hrs 01/18/19 01/18/19 01/18/19 Range/Units 06:47 06:47 06:47 WBC 10.4 (4.8-10.8) x10^3/uL RBC 4.48 (4.20-5.40) 10^6/uL Hgb 13.6 (12.0-16.0) g/dL Hct 41.9 (37.0-47.0) % MCV 93.5 (81.0-99.0) fL MCH 30.4 (27.0-31.0) pg MCHC 32.5 (32.0-36.0) g/dL RDW 13.9 (12.0-15.0) % Plt Count 100 L (130-450) 10^3/uL MPV 10.0 (7.9-10.8) fL Neut # (Auto) 7.7 H (1.5-6.6) 10^3/uL Lymph # (Auto) 1.4 L (1.5-3.5) 10^3/uL [place] # (Auto) 1.1 H (0.0-1.0) 10^3/uL Eos # (Auto) 0.1 (0.0-0.7) 10^3/uL Baso # (Auto) 0.0 (0.0-0.1) 10^3/uL Absolute Nucleated RBC 0.00 x10^3/uL Nucleated RBC % 0.0 /100WBC Sodium 141 (135-145) mmol/L Potassium 3.0 L (3.5-5.0) mmol/L Chloride 111 (101-111) mmol/L Carbon Dioxide 22 (21-32) mmol/L Anion Gap 8.0 (6-13) BUN 22 H (6-20) mg/dL Creatinine 0.9 (0.4-1.0) mg/dL Estimated GFR (MDRD) 59 L (>89) Glucose 142 H (70-100) mg/dL Calcium 8.3 L (8.5-10.3) mg/dL Magnesium 1.6 L (1.7-2.8) mg/dL Total Bilirubin 1.3 H (0.2-1.0) mg/dL AST 61 H (10-42) IU/L ALT 43 (10-60) IU/L Alkaline Phosphatase 55 (42-121) IU/L Total Creatine Kinase 1210 H* (22-269) IU/L Total Protein 5.7 L (6.7-8.2) g/dL Albumin 2.9 L (3.2-5.5) g/dL Globulin 2.8 (2.1-4.2) g/dL Albumin/Globulin Ratio 1.0 (1.0-2.2) TSH 19.87 H (0.34-5.60) uIU/mL ABX Reporting Has patient been on IV antibiotics over the past 48 hours?: Yes Sepsis Event Note (H) - Evaluation Current Stage of Sepsis: Ruled out Assessment/Plan - Problem List (1) Rhabdomyolysis Impression: 01/18, pt feel better. renal function is stable. CK is down to 1200 from 3100. pt denies muscle pain continue IVF of NS, continue CK monitor pt report she stay at ground for overnight after she lean down to the ground. CK is 3100. Creatinine is 1 IVF of NS check CK lab monitor renal function (2) Dizziness Conclusion/Plan: 01/18 pt report she feel better ECHO reveals unremarkable, normal right/left ventricle it seems from pt's Rhoabdo and dehydration pt report he felt very dizziness when he went to bathroom and lean down to ground. pt denies chest pain, headache. No new medication she took now check ECHO, followup fall precaution on tele and vital monitor (3) UTI (urinary tract infection) Conclusion/Plan: 01/18 UA culture is positive, sensitive is pending continue ROcephin pt had WBC had 14 on 01/15/19, 15 on today. UA indicate bacteria and high WBC at urine treat with antibiotics until UA culture revealed (4) HTN (hypertension) Conclusion/Plan: pt has elevated BP, reconcile home BP, vital monitor, PRN hydralazine (5) Hypothyroidism Conclusion/Plan: will check TSH, reconcile synthyroid (6) weakness consult with PT/OT, nurse support encourage safely ambulation. Qualifiers: Rhabdomyolysis type: traumatic Encounter type: initial encounter Qualified Code(s): T79.6XXA - Traumatic ischemia of muscle, initial encounter
[2019-01-19] MEDS: LEVOTHYROXINE 100 MCG TABLET PO SCH (05:43)
[2019-01-19] MEDS: SODIUM CHLORIDE 0.9% 1,000 ML IV SCH ×3 (05:43→22:02)
[2019-01-19 06:53] LABS: BASOPHILS % (AUTO) 0.4 %; EOSINOPHILS # (AUTO) 0.2 10^3/uL (0.0-0.7); EOSINOPHILS % (AUTO) 2.7 %; HGB - HEMOGLOBIN 12.5 g/dL (12.0-16.0); LYMPHOCYTES # (AUTO) 1.8 10^3/uL (1.5-3.5); LYMPHOCYTES % (AUTO) 21.2 %; MEAN CORPUSCULAR HEMOGLOBIN 30.6 pg (27.0-31.0); MEAN CORPUSCULAR HGB CONC 32.6 g/dL (32.0-36.0); MEAN CORPUSCULAR VOLUME 93.9 fL (81.0-99.0); MEAN PLATELET VOLUME 10.6 fL (7.9-10.8); MONOCYTES % (AUTO) 11.3 %; NEUTROPHILS # (AUTO) 5.4 10^3/uL (1.5-6.6); NEUTROPHILS % (AUTO) 63.8 %; PLT - PLATELET COUNT 107 10^3/uL (130-450); RED BLOOD COUNT 4.08 10^6/uL (4.20-5.40); RED CELL DISTRIBUTION WIDTH 14.1 % (12.0-15.0); WHITE BLOOD COUNT 8.4 x10^3/uL (4.8-10.8)
[2019-01-19 07:07] LABS: ALBUMIN 2.6 g/dL (3.2-5.5); ALBUMIN/GLOBULIN RATIO 0.9 (1.0-2.2); CREATININE 0.6 mg/dL (0.4-1.0); TOTAL PROTEIN 5.4 g/dL (6.7-8.2)
[2019-01-19 07:20] LABS: PLATELET ESTIMATE, MANUAL DECREASED (<130,000) (NORMAL); PLATELET MORPHOLOGY NORMAL APPEARANCE (NORMAL); RBC MORPHOLOGY (MULTIPLE) NORMAL APPEARANCE (NORMAL)
[2019-01-19] MEDS: SODIUM CHLORIDE FLUSH 0.9% 10 ML SYRINGE IVP SCH ×2 (07:36→17:45)
[2019-01-19] MEDS: ENOXAPARIN 40 MG/0.4 ML SYRINGE SUBQ SCH (07:38)
[2019-01-19] MEDS: FELODIPINE ER 2.5 MG TABLET PO SCH (09:02)
[2019-01-19] MEDS: CALCIUM CARB (OYSTER SHELL) 500 MG TABLET PO SCH (09:02)
[2019-01-19] MEDS: CHOLECALCIFEROL 1,000 UNIT TABLET PO SCH (09:02)
[2019-01-19] MEDS: FAMOTIDINE 20 MG TABLET PO SCH ×2 (09:02→20:37)
[2019-01-19] MEDS: POLYETHYLENE GLYCOL 3350 17 GM PACKET PO SCH (09:03)
[2019-01-19] MEDS: cefTRIAXone 1 GM in SODIUM CHLORIDE 0.9% MINIBAG 100 ML IV SCH (09:07)
--- NOTE | 2019-01-19 16:24 | PROVIDER PROGRESS NOTE ---
Subjective - Prog Note Date Prog Note Date: 01/19/19 - Subjective Pt reports feeling: Improved Subjective: pt report she felt tired, and sleep lots. she report she was with PT to the chair. she denies fever,chill, and chest pain, shortness of breath. Current Medications - Current Medications Current Medications: Active Medications Acetaminophen (Tylenol) 650 mg PO Q4HR PRN PRN Reason: Pain 1 to 4 Last Admin: 01/18/19 11:15 Dose: 650 mg Calcium Carbonate/Glycine (Oysco-500) 500 mg PO DAILY [facility] Last Admin: 01/19/19 09:02 Dose: 500 mg Cholecalciferol (Vitamin D3) 1,000 unit PO DAILY [facility] Last Admin: 01/19/19 09:02 Dose: 1,000 unit Enoxaparin Sodium (Lovenox) 40 mg SUBQ DAILY [facility] Last Admin: 01/19/19 07:38 Dose: Not Given Famotidine (Pepcid) 20 mg PO BID [facility] Last Admin: 01/19/19 09:02 Dose: 20 mg Felodipine (Plendil) 2.5 mg PO DAILY [facility] Last Admin: 01/19/19 09:02 Dose: 2.5 mg Hydralazine HCl (Apresoline Inj) 10 mg IVP QID PRN PRN Reason: Hypertensive Emergency Sodium Chloride (Normal Saline 0.9%) 1,000 mls @ 125 mls/hr IV .Q8H [facility] Last Admin: 01/19/19 14:21 Dose: 125 mls/hr Ceftriaxone Sodium 1 gm/ (Sodium Chloride) 100 mls @ 200 mls/hr IV DAILY [facility] Last Infusion: 01/19/19 09:40 Dose: Infused Levothyroxine Sodium (Synthroid) 100 mcg PO QDAC [facility] Last Admin: 01/19/19 05:43 Dose: 100 mcg Meclizine HCl (Antivert) 12.5 mg PO Q6HR PRN PRN Reason: Dizziness Ondansetron HCl (Zofran Inj) 4 mg IVP Q6HR PRN PRN Reason: Nausea / Vomiting Polyethylene Glycol (Miralax) 17 gm PO DAILY [facility] Last Admin: 01/19/19 09:03 Dose: 17 gm Sodium Chloride (Normal Saline Flush 0.9%) 10 ml IVP PRN PRN PRN Reason: NEEDED PER PROVIDER ORDERS Last Admin: 01/17/19 18:56 Dose: 10 ml Sodium Chloride (Normal Saline Flush 0.9%) 10 ml IVP 0100,0900,1700 [facility] Last Admin: 01/19/19 07:36 Dose: Not Given Levothyroxine Sodium [Synthroid] 100 mcg PO QDAC 01/15/19 Calcium Carbonate/Vitamin D3 [Calcium 500-Vit D3 200 Tablet] 1 each PO DAILY 01/17/19 Felodipine [Felodipine ER] 2.5 mg PO DAILY 01/17/19 Glucosamine Sulfate 500 mg PO DAILY 01/17/19 Meclizine HCl 25 mg PO Q8H PRN 01/17/19 Objective - Vital Signs/Intake & Output Reviewed Vital Signs: Yes Vital Signs: Vital Signs x48h Temp Pulse Pulse Resp BP Pulse Ox 01/19/19 16:00 37.1 C 88 18 149/82 H 96 01/19/19 10:56 36.8 C 100 18 94 01/19/19 10:00 36.8 C 100 18 148/68 H 95 Intake & Output: Intake & Output 01/16/19 01/17/19 01/18/19 01/19/19 23:59 23:59 23:59 23:59 Intake Total 3202.083 3381.167 2527.917 Output Total 1000 1650 Balance 3202.083 2381.167 877.917 - Objective General Appearance: positive: No acute distress, Alert. negative: Lethargic Eyes Bilateral: positive: Normal inspection, PERRL, No lid inflammation, C onjunctivae nml ENT: positive: ENT inspection nml, Pharynx nml, No signs of dehydration. negative: Purulent nasal drainage, Pharyngeal erythema, Oral lesions Neck: positive: Nml inspection, Thyroid nml, No JVD. negative: Trachea midline, Thyromegaly, Lymphadenopathy (R), Lymphadenopathy (L), Stiff neck, Swelling/bruising, Tracheal deviation Respiratory: positive: Chest non-tender, No respiratory distress, Breath sounds nml. negative: Wheezes, Rales, Rhonchi Cardiovascular: positive: Regular rate & rhythm, No murmur, No gallop. negative: Irregularly irregular, Extrasystoles, Tachycardia, Bradycardia, JVD present, Systolic murmur, Diastolic murmur Peripheral Pulses: 2+ Radial (R), 2+ Radial (L), 2+ Dorsalis pedis (R), 2+ Dorsalis pedis (L) Abdomen: positive: Non-tender, No organomegaly, Nml bowel sounds, No distention. negative: Tenderness, Guarding, Rebound Back: positive: Nml inspection. negative: CVA tenderness (R), CVA tenderness (L) Skin: positive: Color nml, No rash, Warm, Dry. negative: Cyanosis, Diaphoresis, Pallor Extremities: positive: Non-tender, Full ROM, Nml appearance. negative: Calf tenderness, Joint swelling, Charla's sign/cords Neurologic/Psychiatric: positive: Oriented x3, Sensation nml, Mood/affect nml. negative: Weakness, Sensory loss, Facial droop, Slurred/abnml speech, Depressed mood/affect - Lab Results Fish Bones: 01/19/19 06:25 01/19/19 06:25 Other Labs: Lab Results x24hrs 01/19/19 01/19/19 01/19/19 Range/Units 06:25 06:25 06:25 WBC 8.4 (4.8-10.8) x10^3/uL RBC 4.08 L (4.20-5.40) 10^6/uL Hgb 12.5 (12.0-16.0) g/dL Hct 38.3 (37.0-47.0) % MCV 93.9 (81.0-99.0) fL MCH 30.6 (27.0-31.0) pg MCHC 32.6 (32.0-36.0) g/dL RDW 14.1 (12.0-15.0) % Plt Count 107 L (130-450) 10^3/uL MPV 10.6 (7.9-10.8) fL Neut # (Auto) 5.4 (1.5-6.6) 10^3/uL Lymph # (Auto) 1.8 (1.5-3.5) 10^3/uL [place] # (Auto) 1.0 (0.0-1.0) 10^3/uL Eos # (Auto) 0.2 (0.0-0.7) 10^3/uL Baso # (Auto) 0.0 (0.0-0.1) 10^3/uL Absolute Nucleated RBC 0.00 x10^3/uL Nucleated RBC % 0.0 /100WBC Manual Slide Review Indicated WBC Morphology NORMAL APPEARANCE (NORMAL) Platelet Estimate DECREASED (<130,000) (NORMAL) Platelet Morphology NORMAL APPEARANCE (NORMAL) RBC Morph Micro Appear NORMAL APPEARANCE (NORMAL) Sodium 142 (135-145) mmol/L Potassium 3.7 (3.5-5.0) mmol/L Chloride 109 (101-111) mmol/L Carbon Dioxide 24 (21-32) mmol/L Anion Gap 9.0 (6-13) BUN 13 (6-20) mg/dL Creatinine 0.6 (0.4-1.0) mg/dL Estimated GFR (MDRD) 95 (>89) Glucose 127 H (70-100) mg/dL Calcium 8.0 L (8.5-10.3) mg/dL Total Bilirubin 1.0 (0.2-1.0) mg/dL AST 38 (10-42) IU/L ALT 36 (10-60) IU/L Alkaline Phosphatase 50 (42-121) IU/L Total Creatine Kinase 538 H (22-269) IU/L Total Protein 5.4 L (6.7-8.2) g/dL Albumin 2.6 L (3.2-5.5) g/dL Globulin 2.8 (2.1-4.2) g/dL Albumin/Globulin Ratio 0.9 L (1.0-2.2) Free T4 0.87 (0.58-1.64) ng/dL ABX Reporting Has patient been on IV antibiotics over the past 48 hours?: Yes Sepsis Event Note (H) - Evaluation Current Stage of Sepsis: Ruled out Assessment/Plan - Problem List (1) Rhabdomyolysis Impression: 01/19 CK is down to 538 from 3100 continue IVF and CK monitor 01/18, pt feel better. renal function is stable. CK is down to 1200 from 3100. pt denies muscle pain continue IVF of NS, continue CK monitor pt report she stay at ground for overnight after she lean down to the ground. CK is 3100. Creatinine is 1 IVF of NS check CK lab monitor renal function (2) Dizziness Conclusion/Plan: 01/18 pt report she feel better ECHO reveals unremarkable, normal right/left ventricle it seems from pt's Rhoabdo and dehydration pt report he felt very dizziness when he went to bathroom and lean down to ground. pt denies chest pain, headache. No new medication she took now check ECHO, followup fall precaution on tele and vital monitor (3) UTI (urinary tract infection) Conclusion/Plan: 01/19 UA culture reveals Ecoli, sensitive to all meds continue ROcephin 01/18 UA culture is positive, sensitive is pending continue ROcephin pt had WBC had 14 on 01/15/19, 15 on today. UA indicate bacteria and high WBC at urine treat with antibiotics until UA culture revealed (4) HTN (hypertension) Conclusion/Plan: pt has elevated BP, reconcile home BP, vital monitor, PRN hydralazine (5) Hypothyroidism Conclusion/Plan: will check TSH, reconcile synthyroid (6) weakness 01/19 continue PT/OT. encourage pt ambulate safely. consult with PT/OT, nurse support encourage safely ambulation. Qualifiers: Rhabdomyolysis type: traumatic Encounter type: initial encounter Qualified Code(s): T79.6XXA - Traumatic ischemia of muscle, initial encounter
[2019-01-20] MEDS: SODIUM CHLORIDE FLUSH 0.9% 10 ML SYRINGE IVP SCH ×2 (05:55→08:58)
[2019-01-20] MEDS: SODIUM CHLORIDE 0.9% 1,000 ML IV SCH ×2 (06:14→06:15)
[2019-01-20] MEDS: LEVOTHYROXINE 100 MCG TABLET PO SCH (06:19)
[2019-01-20 06:50] LABS: BASOPHILS % (AUTO) 0.1 %; EOSINOPHILS # (AUTO) 0.2 10^3/uL (0.0-0.7); HGB - HEMOGLOBIN 12.8 g/dL (12.0-16.0); LYMPHOCYTES # (AUTO) 1.4 10^3/uL (1.5-3.5); LYMPHOCYTES % (AUTO) 18.4 %; MEAN CORPUSCULAR HEMOGLOBIN 30.5 pg (27.0-31.0); MEAN CORPUSCULAR HGB CONC 32.6 g/dL (32.0-36.0); MEAN CORPUSCULAR VOLUME 93.8 fL (81.0-99.0); MEAN PLATELET VOLUME 10.7 fL (7.9-10.8); MONOCYTES % (AUTO) 12.5 %; NEUTROPHILS % (AUTO) 65.2 %; PLT - PLATELET COUNT 102 10^3/uL (130-450); RED BLOOD COUNT 4.19 10^6/uL (4.20-5.40); RED CELL DISTRIBUTION WIDTH 13.8 % (12.0-15.0); WHITE BLOOD COUNT 7.7 x10^3/uL (4.8-10.8)
[2019-01-20 07:04] LABS: ALBUMIN 2.7 g/dL (3.2-5.5); BILIRUBIN,TOTAL 1.2 mg/dL (0.2-1.0); CALCIUM 8.1 mg/dL (8.5-10.3); CREATININE 0.6 mg/dL (0.4-1.0); TOTAL PROTEIN 5.5 g/dL (6.7-8.2)
[2019-01-20] MEDS ORDERED: POTASSIUM CHLORIDE 20 MEQ TABLET PO ONE (07:28)
[2019-01-20] MEDS ORDERED: SODIUM CHLORIDE 0.9% 1,000 ML IV SCH (07:33)
[2019-01-20] MEDS: FAMOTIDINE 20 MG TABLET PO SCH (08:56)
[2019-01-20] MEDS: FELODIPINE ER 2.5 MG TABLET PO SCH (08:56)
[2019-01-20] MEDS: CHOLECALCIFEROL 1,000 UNIT TABLET PO SCH (08:57)
[2019-01-20] MEDS: CALCIUM CARB (OYSTER SHELL) 500 MG TABLET PO SCH (08:57)
[2019-01-20] MEDS: ENOXAPARIN 40 MG/0.4 ML SYRINGE SUBQ SCH (08:57)
[2019-01-20] MEDS: POLYETHYLENE GLYCOL 3350 17 GM PACKET PO SCH (08:57)
[2019-01-20] MEDS: cefTRIAXone 1 GM in SODIUM CHLORIDE 0.9% MINIBAG 100 ML IV SCH (08:57)
[2019-01-20] MEDS ORDERED: DOCUSATE SODIUM 250 MG CAPSULE PO SCH (09:00)
[2019-01-20] MEDS ORDERED: SENNA 8.6 MG TABLET PO SCH (09:00)
--- NOTE | 2019-01-20 09:04 | XRAY Report ---
Reason: SOB Procedure Date: 01/20/2019 Accession Number: [id number] / [id number] Procedure: XR - Chest 1 View X-Ray CPT Code: 32376 FULL RESULT: EXAM: CHEST RADIOGRAPHY EXAM DATE: 01/20/2019 08:16 AM. CLINICAL HISTORY: SOB. COMPARISON: 01/18/2019, 01/17/2019 chest x-ray TECHNIQUE: 1 view. FINDINGS: Lungs/Pleura: No focal opacities evident. No pleural effusion. No pneumothorax. Mediastinum: Within exam limitations, the cardiomediastinal contour is normal. Other: Surgical clips left breast. IMPRESSION: Clear lungs. No acute findings. [facility]
--- NOTE | 2019-01-20 13:14 | Discharge Plan ---
"Discharge Plan for SNF / [facility] - Discharge Plan And Transition Orders Problem Reviewed?: Yes Disposition: 03 SNF DC/Xfer Condition: Poor Allergies and Adverse Reactions: Allergies Allergy/AdvReac Type Severity Reaction Status Date / Time No Known Drug Allergies Allergy Verified 01/17/19 12:42 Health Concerns: fall, weakness Plan of Treatment: PT/OT continue training for pt Care Goals: stabilization of pt's medical conditions Assessment: pt's CXR, CT of head, US of abdomen, ECHO are unremarkable. - SNF / PENITENTIARY Transition Orders Admit to (Facility): [facility] Under the care of (Name): medical provider of [facility] Discharge Diagnosis: Rhabdomyolysis, dizziness, weakness and fall, UTI, HTN, hypothyroidism, Medicare Certification Statement: I certify that [facility] care is medically necessary on a continuing basis for any of the conditions for which she/he is receiving care during hospitalization. Notify PCP of admission and forward orders to primary provider for signature. Weight on admission and: Daily Call PCP immediately if weight increases by: 2 kg Other Notification Orders: Call PCP immediately if patient develops dyspnea, chest pain/tightness or edema. House Bowel Program: Yes Additional Bowel Program Orders: If no BM after 2 days, nurse may give M.O.M. 30ml PO PRN and/or ducolax Supp 1 NM and/or KELLY 250mg P.O., and/or senna 1-2 tabs PO. On day 3 nurse may give repeat above order until residents constipation is resolved. Annual Influenza Vaccine (between Mar 23 and October 20): Yes Two-step PPD per [facility] [phone] or approved exception documents: Yes Treatments & Other Orders: pt may followup medical provider at [facility] when pt is arrivat to. Pt may continue to have PT/OT/ST evaluation Oxygen Orders: 2 liter on NC Medication Orders: PLEASE REFER TO THE DISCHARGE MEDICATION LIST. Insulin Orders?: No - Medications New Prescriptions: Cephalexin [Keflex] 500 mg PO BID #14 capsule Saccharomyces Boulardii [Florastor] 250 mg PO DAILY #7 capsule - Diet Type: Geriatric Texture: Puree Liquids: Pevely thick May have monthly special meal: Yes - Therapies | Activity Therapy: Evaluation | Treat if indicated: PT, OT, Swallowing / ST Rehabilitation Potential: Maximize functional status Activity: Activity as Tolerated Additional Instructions: pt may followup medical provider at [facility] when pt is arrivat to. Pt may continue to have PT/OT/ST evaluation"
--- NOTE | 2019-01-20 13:30 | DISCHARGE SUMMARY ---
Discharge Summary Discharge Date: 01/20/19 Discharging Provider: MARLOW Primary Care Provider: Maryellen Carbajal Condition at Discharge: Poor Discharge Disposition: 03 SNF DC/Xfer Discharge Facility Name: [facility] - DIAGNOSES Admission Diagnoses: (1) Rhabdomyolysis (2) Dizziness (3) UTI (urinary tract infection) (4) HTN (hypertension) (5) Hypothyroidism Discharge Diagnoses with Status of Each Condition: (1) Rhabdomyolysis today pt's CK is down to 270, pt has stable kidney function. pt denies muscle pain or tenderness. pt had no injury from pt's lean down fall. (2) Dizziness great improved. pt's ECHO is unremarkable. continue PT/OT/ST in [facility] (3) UTI (urinary tract infection) UA culture reveals positive for Ecoli, it is sensitive to all tested antibiotics pt is prescribed antibiotics ceftin for continuing the treatment course. (4) HTN (hypertension) stable, resume home BP meds, followup PCP (5) Hypothyroidism normal TSH, continue home meds, followup PCP (6) weakness improved. continue in [facility] training - HPI History of Present Illness: Ms. Miller is a 88-yrs-old female with a PMH significant of HTN, hypothyroidism, who present ER complain of fall and weakness. pt report she had a fall on Sunday01/15/19 and had a similar fall on last night. She report when she went to bathroom she felt dizziness, then she lean down against the wall to the bathroom ground. she felt very tired and she can not stand up and lay at the b athroom ground. she did not know how she was brought to the ER. She denies dysuria or hematuria. She denies any injury, headache, fever, chill, chest pain, abdominal pain, nausea, vomiting. She report " I am health, I will choose full code now." Pt's Lab test today reveal CK is over 3000, elevated WBC to 15, elevated bili and AST. CT of head and CXR are unremarkable. pt was admitted for rhabdomyolysis, weakness anf fall. - HOSPITAL COURSE Hospital Course: pt was admitted for rhabdomyolysis, dizziness, weakness and fall. pt denies injury from leaning fall. pt was found to have over 3000 CK. pt was treated IVF. ECHO reveals unremarkable. pt was evaluated and treated by PT/OT. pt was recommended for SNF for her weakness. pt was also found to have UTI. pt was treated with Rocephine. UA culture reveals positive Ecoli and sensitive to all tested antibiotics. pt is prescribed antibiotics for continuing the treatment course. - ALLERGIES Allergies/Adverse Reactions: Allergies Allergy/AdvReac Type Severity Reaction Status Date / Time No Known Drug Allergies Allergy Verified 01/17/19 12:42 - MEDICATIONS Home Medications: Ambulatory Orders Medication Instructions Recorded Confirmed Levothyroxine Sodium [Synthroid] 100 mcg PO QDAC 01/15/19 01/17/19 Calcium Carbonate/Vitamin D3 1 each PO DAILY 01/17/19 01/17/19 [Calcium 500-Vit D3 200 Tablet] Felodipine [Felodipine ER] 2.5 mg PO DAILY 01/17/19 01/17/19 Glucosamine Sulfate 500 mg PO DAILY 01/17/19 01/17/19 Meclizine HCl 25 mg PO Q8H PRN 01/17/19 01/17/19 Cephalexin [Keflex] 500 mg PO BID #14 capsule 01/20/19 Saccharomyces Boulardii [Florastor] 250 mg PO DAILY #7 capsule 01/20/19 - PHYSICAL EXAM AT DISCHARGE General Appearance: positive: No acute distress, Alert. negative: Lethargic Eyes Bilateral: positive: Normal inspection, PERRL, No lid inflammation, Conjunctivae nml ENT: positive: ENT inspection nml, Pharynx nml, No signs of dehydration. negative: Purulent nasal drainage, Pharyngeal erythema, Oral lesions Neck: positive: Nml inspection, Thyroid nml, No JVD, Trachea midline. negative: Thyromegaly, Lymphadenopathy (R), Lymphadenopathy (L), Stiff neck, Swelling/bruising, Tracheal deviation Respiratory: positive: Chest non-tender, No respiratory distress, Breath sounds nml. negative: Wheezes, Rales, Rhonchi Cardiovascular: positive: Regular rate & rhythm, No murmur, No gallop. negative: Irregularly irregular, Extrasystoles, Tachycardia, Bradycardia, JVD present, Systolic murmur, Diastolic murmur Peripheral Pulses: positive: 2+ Abdomen: positive: Non-tender, No organomegaly, Nml bowel sounds, No distention. negative: Tenderness, Guarding, Rebound Back: positive: Nml inspection. negative: CVA tenderness (R), CVA tenderness (L) Skin: positive: Color nml, No rash, Warm, Dry. negative: Cyanosis, Diaphoresis, Pallor Extremities: positive: Non-tender, Nml appearance. negative: Calf tenderness, Joint swelling, Charla's sign/cords Neurologic/Psychiatric: positive: Oriented x3, Sensation nml, Mood/affect nml. negative: Weakness, Sensory loss, Facial droop, Slurred/abnml speech, Depressed mood/affect - LABS Result Diagrams: 01/20/19 06:05 01/20/19 06:05 - SEPSIS Current Stage of Sepsis: Ruled out - FOLLOW UP Follow Up: pt may followup medical provider at [facility] when pt is arrivat to. Pt may continue to have PT/OT/ST evaluation and treatment - TIME SPENT Time Spent in Discharge (Minutes): 55
[2019-01-20 14:26] VITALS: BP 137/75
== END 2019-01-20 16:00 | DRG 565 ==
LOC: EDUNIT# → ED 12:36 → OBS 17:04 → OBSVTOIN 01-18 10:28 → MS2 01-18 15:54
PROVIDERS: ADMIT Nurse Practitioner Gerontology; ATTEND Nurse Practitioner Gerontology
DX: T79.6XXA Traumatic ischemia of muscle, initial encounter (principal); N39.0 Urinary tract infection, site not specified; B96.20 Unspecified Escherichia coli [E. coli] as the cause of diseases classified elsewhere; R31.29 Other microscopic hematuria; W18.39XA Other fall on same level, initial encounter; Y92.002 Bathroom of unspecified non-institutional (private) residence as the place of occurrence of the external cause; R42 Dizziness and giddiness; Z74.2 Need for assistance at home and no other household member able to render care; E86.0 Dehydration; I10 Essential (primary) hypertension; E03.9 Hypothyroidism, unspecified; Z79.899 Other long term (current) drug therapy; Z91.81 History of falling
CPT/HCPCS: 36415; 70450; 71045; 76705; 80053; 81001; 82550; 83690; 83735; 84439; 84443; 84484; 85025; 87086; 87181; 92610; 93005; 93306; 96361; 96365; 96366; 96372; 97162; 97166; 97530; 99284; A9270; G0378; J1650; J7040; 81003; 96360; 99283

== ENCOUNTER 2019-01-31 08:00 | Outpatient (CLI) | payer MEDICARE, OTHER | END 2019-01-31 08:01 | disposition home or self-care (01) | LOC: LAB.R 08:00 | DX: E03.9 Hypothyroidism, unspecified (principal) | CPT/HCPCS: 84443 ==

== ENCOUNTER 2019-02-14 16:10 | Outpatient (CLI) | payer MEDICARE, OTHER ==
[2019-02-14 21:05] LABS: BASOPHILS % (AUTO) 0.4 %; EOSINOPHILS # (AUTO) 0.3 10^3/uL (0.0-0.7); EOSINOPHILS % (AUTO) 3.3 %; HGB - HEMOGLOBIN 12.3 g/dL (12.0-16.0); LYMPHOCYTES # (AUTO) 1.6 10^3/uL (1.5-3.5); LYMPHOCYTES % (AUTO) 20.5 %; MEAN CORPUSCULAR HEMOGLOBIN 29.1 pg (27.0-31.0); MEAN CORPUSCULAR HGB CONC 31.1 g/dL (32.0-36.0); MEAN CORPUSCULAR VOLUME 93.6 fL (81.0-99.0); MONOCYTES # (AUTO) 0.9 10^3/uL (0.0-1.0); MONOCYTES % (AUTO) 11.4 %; NEUTROPHILS # (AUTO) 4.9 10^3/uL (1.5-6.6); NEUTROPHILS % (AUTO) 63.9 %; PLT - PLATELET COUNT 212 10^3/uL (130-450); RED BLOOD COUNT 4.22 10^6/uL (4.20-5.40); RED CELL DISTRIBUTION WIDTH 13.9 % (12.0-15.0); WHITE BLOOD COUNT 7.7 x10^3/uL (4.8-10.8)
== END 2019-02-14 23:59 | disposition home or self-care (01) ==
LOC: LAB.R 16:10
DX: R42 Dizziness and giddiness (principal); D64.9 Anemia, unspecified
CPT/HCPCS: 80053; 85025

== ENCOUNTER 2019-02-17 19:20 | Outpatient (CLI) | payer MEDICARE, OTHER ==
[2019-02-17 21:42] LABS: ALBUMIN 3.2 g/dL (3.2-5.5); ALBUMIN/GLOBULIN RATIO 0.9 (1.0-2.2); BILIRUBIN,TOTAL 0.5 mg/dL (0.2-1.0); CALCIUM 9.4 mg/dL (8.5-10.3); CREATININE 0.9 mg/dL (0.4-1.0); TOTAL PROTEIN 6.7 g/dL (6.7-8.2)
== END 2019-02-17 23:59 | disposition home or self-care (01) ==
LOC: LAB.R 19:20
DX: R42 Dizziness and giddiness (principal)
CPT/HCPCS: 80053

== ENCOUNTER 2019-03-28 08:00 | Outpatient (CLI) | payer MEDICARE, OTHER ==
[2019-03-28 22:35] LABS: CALCIUM 9.5 mg/dL (8.5-10.3); CREATININE 0.9 mg/dL (0.4-1.0)
== END 2019-03-28 23:59 | disposition home or self-care (01) ==
LOC: LAB.R 08:00
DX: I63.9 Cerebral infarction, unspecified (principal); E03.9 Hypothyroidism, unspecified
CPT/HCPCS: 80048; 84443

== ENCOUNTER 2019-08-12 15:29 | Outpatient (CLI) | payer MEDICARE, OTHER | END 2019-08-12 23:59 | disposition home or self-care (01) | LOC: LAB.N 15:29 | PROVIDERS: ATTEND Nurse Practitioner Gerontology | DX: R06.89 Other abnormalities of breathing (principal); E03.9 Hypothyroidism, unspecified | CPT/HCPCS: 36415; 83880; 84443 ==

== ENCOUNTER 2021-06-03 13:33 | Outpatient (CLI) | payer MEDICARE, OTHER | END 2021-06-03 23:59 | disposition critical access hospital (66) | LOC: EMS 13:33 | DX: R41.0 Disorientation, unspecified (principal) | CPT/HCPCS: A0425; A0429 ==

== ENCOUNTER 2021-06-03 13:49 | Inpatient (IN) | payer MEDICARE, OTHER ==
--- NOTE | 2021-06-03 14:15 | ED Physician Documentation ---
History of Present Illness - Stated complaint Stated Complaint: WEAKNESS - Chief complaint Chief Complaint: Neuro - Additonal information Additional information: 89-year-old female presents the emergency department for evaluation of increased confusion, refusal to take her meds as well as right-sided abdominal pain. History is limited as patient has baseline dementia. She presents from the [facility]. She was noted to be hypoxic on room air with a saturation of 89. 2 L nasal cannula caused resultant rise to 96%. Days. History is obtained from the chart as well as EMS. Patient is confused to time and place No reported falls or trauma. No obvious external signs of trauma/bruising. Pt is not anticoagulated PMH: Hypertension, dementia, CVA with residual left-sided deficits Patient is a full code Review of Systems Unable to obtain: Dementia, Other (obtained from chart, ems; pt non contribnutary) PD PAST MEDICAL HISTORY - Past Medical History Cardiovascular: Hypertension Neuro: CVA Endocrine/Autoimmune: HyPOthyroidism Musculoskeletal: Osteoarthritis, Fatigue, Chronic back pain - Past Surgical History Past Surgical History: No /MANAGER RELATIONSHIP: Other - Present Medications Home Medications: Ambulatory Orders Medication Instructions Recorded Confirmed Levothyroxine Sodium [Synthroid] 100 mcg PO QDAC 01/15/19 01/17/19 Calcium Carbonate/Vitamin D3 1 each PO DAILY 01/17/19 01/17/19 [Calcium 500-Vit D3 200 Tablet] Felodipine [Felodipine ER] 2.5 mg PO DAILY 01/17/19 01/17/19 Glucosamine Sulfate 500 mg PO DAILY 01/17/19 01/17/19 Meclizine HCl 25 mg PO Q8H PRN 01/17/19 01/17/19 Saccharomyces Boulardii [Florastor] 250 mg PO DAILY #7 capsule 01/20/19 cephALEXin [Keflex] 500 mg PO BID #14 capsule 01/20/19 - Allergies Allergies/Adverse Reactions: Allergies Allergy/AdvReac Type Severity Reaction Status Date / Time No Known Drug Allergies Allergy Verified 06/03/21 14:08 - Social History Does the pt smoke?: No Smoking Status: Never smoker Does the pt drink ETOH?: No Does the pt have substance abuse?: No - Immunizations Immunizations are current?: Yes - POLST Patient has POLST: Yes PD ED PE EXPANDED - General General: Alert, No acute distress - HEENT HEENT: Other (Dry oral mucosa and mucous membranes. Chapped lips.) - Cardiac Cardiac: Regular Rate, Radial strong equal, Pedal strong equal, Cap refill < 2 sec - Respiratory Respiratory: Clear to ausultation maurice. No: Distress, Labored - Abdomen Abdomen: Normal Bowel sounds, Tender to palpation (Generalized abdominal tenderness without guarding or rebound.) - Back Back: No: Vertebral tenderness, Soft tissue tenderness - Derm Derm: Normal color, Warm and dry. No: Rash, Abrasion (s), Bruising - Neuro Neuro: Confused, CNII-XII intact - GCS Eye Opening: Spontaneous Motor: Obeys Commands Verbal: Confused Total: 14 Results - Vitals Vitals: Vital Signs - 24 hr 06/03/21 06/03/21 13:53 14:33 Temperature 37.6 C Heart Rate 101 H 99 Respiratory 16 17 Rate Blood Pressure 154/109 H 154/108 H O2 Saturation 89 L 99 Oxygen O2 Source Room air - EKG (time done) 1438 Rate: Rate (enter#) (101) Rhythm: NSR [place]: Other Intervals: Normal [place]. No: Prolonged QT QRS: Normal Ischemia: Q waves (inferior) Compare to prior EKG: Changed from prior EKG Computer interpretation: Agree with computer - Labs Labs: Laboratory Tests 06/03/21 06/03/21 06/03/21 14:17 14:17 14:17 WBC 11.6 H RBC 5.77 H Hgb 16.4 H Hct 52.3 H MCV 90.6 MCH 28.4 MCHC 31.4 L RDW 15.4 H Plt Count 151 MPV 10.1 Neut # (Auto) 8.6 H Lymph # (Auto) 1.7 [place] # (Auto) 1.2 H Eos # (Auto) 0.1 Baso # (Auto) 0.0 Absolute Nucleated RBC 0.00 Nucleated RBC % 0.0 Sodium 148 H Potassium 4.1 Chloride 106 Carbon Dioxide 27 Anion Gap 15.0 H BUN 41 H Creatinine 1.1 H Estimated GFR (MDRD) 47 L Glucose 152 H Lactic Acid Calcium 10.1 Total Bilirubin 1.4 H AST 15 ALT 17 Alkaline Phosphatase 82 Total Creatine Kinase 84 Troponin I High Sens 12.2 B-Natriuretic Peptide Total Protein 8.2 Albumin 4.2 Globulin 4.0 Albumin/Globulin Ratio 1.1 Lipase 38 TSH Urine Color Urine Clarity Urine pH Ur Specific [employer] [employer] Urine Protein Urine Glucose (UA) Urine Ketones Urine Occult Blood Urine Nitrite Urine Bilirubin Urine Urobilinogen Ur Leukocyte Esterase Ur Microscopic Review Urine Culture Comments 06/03/21 06/03/21 06/03/21 14:17 14:17 14:30 WBC RBC Hgb Hct MCV MCH MCHC RDW Plt Count MPV Neut # (Auto) Lymph # (Auto) [place] # (Auto) Eos # (Auto) Baso # (Auto) Absolute Nucleated RBC Nucleated RBC % Sodium Potassium Chloride Carbon Dioxide Anion Gap BUN Creatinine Estimated GFR (MDRD) Glucose Lactic Acid 1.5 Calcium Total Bilirubin AST ALT Alkaline Phosphatase Total Creatine Kinase Troponin I High Sens B-Natriuretic Peptide 40 Total Protein Albumin Globulin Albumin/Globulin Ratio Lipase TSH 0.87 Urine Color Urine Clarity Urine pH Ur Specific [employer] [employer] Urine Protein Urine Glucose (UA) Urine Ketones Urine Occult Blood Urine Nitrite Urine Bilirubin Urine Urobilinogen Ur Leukocyte Esterase Ur Microscopic Review Urine Culture Comments 06/03/21 14:45 WBC RBC Hgb Hct MCV MCH MCHC RDW Plt Count MPV Neut # (Auto) Lymph # (Auto) [place] # (Auto) Eos # (Auto) Baso # (Auto) Absolute Nucleated RBC Nucleated RBC % Sodium Potassium Chloride Carbon Dioxide Anion Gap BUN Creatinine Estimated GFR (MDRD) Glucose Lactic Acid Calcium Total Bilirubin AST ALT Alkaline Phosphatase Total Creatine Kinase Troponin I High Sens B-Natriuretic Peptide Total Protein Albumin Globulin Albumin/Globulin Ratio Lipase TSH Urine Color YELLOW Urine Clarity CLEAR Urine pH 5.5 Ur Specific [employer] [employer] 1.025 Urine Protein TRACE Urine Glucose (UA) NEGATIVE Urine Ketones 15 H Urine Occult Blood NEGATIVE Urine Nitrite NEGATIVE Urine Bilirubin NEGATIVE Urine Urobilinogen 1 (NORMAL) Ur Leukocyte Esterase NEGATIVE Ur Microscopic Review NOT INDICATED Urine Culture Comments NOT INDICATED - Rads (name of study) CXR Radiology: Final report received (Minimal hazy opacity in the right mid lung field. This could represent atelectasis or less likely infectious/inflammatory etiology.) CT head Radiology: Final report received (Evidence of acute intracranial pathology. Diffuse atrophy and extensive white matter chronic small vessel ischemic changes.) CT pulm angio Radiology: Prelim report reviewed, Final report received CT abd Radiology: Prelim report reviewed, Final report received PD MEDICAL DECISION MAKING - ED course Complexity details: reviewed results, re-evaluated patient, considered differential ED course: 89-year-old female who has a history of baseline dementia (FULL CODE) presents to the emergency department from her care facility [facility] for evaluation of acutely altered mental status, refusal to take her medications as well as acute hypoxia. No previous history of COPD emphysema or oxygen requirements. However on room air saturations were 88 to 90%. Saturations improved to 99% with 2 L nasal cannula. Screening labs did not show any acute worrisome abnormality. High-sensitivity troponin and BNP were negative. Screening chest x-ray without acute focal opacity. CT head and abdomen without acute findings. Therefore CT angio of the chest was completed which unfortunately shows extensive bilateral pulmonary emboli involving both lower lobes of the lungs. There is early right heart strain and possible early infarct. Patient was given initial dose 1 mg/kg of Lovenox. Pt PESI score 169, putting her at very high risk for mortality Case was discussed with Dr. Evelyne Santillan who graciously agrees to admit the patient I did attempt to contact pt's daughter multiple time to discuss the ED visit and diagnosis, however no answer to either listed number. VM left. Departure - Departure Disposition: 66 [facility] DC/Xfer Clinical Impression: Pulmonary embolism and infarction, Hypoxia Dementia Qualifiers: Dementia type: unspecified type Dementia behavioral disturbance: without behavioral disturbance Qualified Code(s): F03.90 - Unspecified dementia without behavioral disturbance
[2021-06-03 14:24] LABS: BASOPHILS % (AUTO) 0.3 %; EOSINOPHILS # (AUTO) 0.1 10^3/uL (0.0-0.7); EOSINOPHILS % (AUTO) 0.4 %; HCT - HEMATOCRIT 52.3 % (37.0-47.0); HGB - HEMOGLOBIN 16.4 g/dL (12.0-16.0); LYMPHOCYTES # (AUTO) 1.7 10^3/uL (1.5-3.5); LYMPHOCYTES % (AUTO) 14.8 %; MEAN CORPUSCULAR HEMOGLOBIN 28.4 pg (27.0-31.0); MEAN CORPUSCULAR HGB CONC 31.4 g/dL (32.0-36.0); MEAN CORPUSCULAR VOLUME 90.6 fL (81.0-99.0); MEAN PLATELET VOLUME 10.1 fL (7.9-10.8); MONOCYTES # (AUTO) 1.2 10^3/uL (0.0-1.0); MONOCYTES % (AUTO) 10.1 %; NEUTROPHILS # (AUTO) 8.6 10^3/uL (1.5-6.6); PLT - PLATELET COUNT 151 10^3/uL (130-450); RED BLOOD COUNT 5.77 10^6/uL (4.20-5.40); RED CELL DISTRIBUTION WIDTH 15.4 % (12.0-15.0); WHITE BLOOD COUNT 11.6 x10^3/uL (4.8-10.8)
[2021-06-03] MEDS ORDERED: IOVERSOL 320 100 ML VIAL IVP ONE ×2 (14:27→17:43)
--- NOTE | 2021-06-03 14:43 | XRAY Report ---
PROCEDURE: Chest 1 View X-Ray INDICATIONS: Chest Pain TECHNIQUE: One view of the chest was acquired. COMPARISON: CXR 01/20/2019. FINDINGS: Surgical changes and devices: Left breast clips. Lungs and pleura: No pleural effusions or pneumothorax. Minimal hazy opacity in the right midlung fi eld. No consolidation. Mediastinum: Mediastinal contours appear unchanged. Heart size is within normal limits. Bones and chest wall: No suspicious bony lesions. Overlying soft tissues appear unremarkable. IMPRESSION: Minimal hazy opacity in the right midlung field. This could represent atelectasis or less likely infectious/inflammatory etiology. Reviewed by: Juan Vanegas MD on 06/03/2021 2:41 PM PST Approved by: Juan Vanegas MD on 06/03/2021 2:41 PM PST Station ID: [id number]
[2021-06-03] MEDS ORDERED: SODIUM CHLORIDE 0.9% 1,000 ML IV STA (14:51)
[2021-06-03 14:53] LABS: GLUCOSE, URINE (UA) NEGATIVE (NEGATIVE); KETONES,URINE (UA) 15 mg/dL (NEGATIVE); LEUKOCYTE ESTERASE, URINE NEGATIVE (NEGATIVE); NITRITE,URINE NEGATIVE (NEGATIVE); OCCULT BLOOD,URINE NEGATIVE (NEGATIVE); PH,URINE 5.5 PH (5.0-7.5); PROTEIN,URINE TRACE mg/dL (NEGATIVE); UROBILINOGEN,URINE 1 (NORMAL) E.U./dL (NORMAL)
[2021-06-03 14:53] LABS: ALBUMIN 4.2 g/dL (3.2-5.5); ALBUMIN/GLOBULIN RATIO 1.1 (1.0-2.2); BILIRUBIN,TOTAL 1.4 mg/dL (0.2-1.0); CALCIUM 10.1 mg/dL (8.5-10.3); CREATININE 1.1 mg/dL (0.4-1.0); POTASSIUM 4.1 mmol/L (3.5-5.0); TOTAL PROTEIN 8.2 g/dL (6.7-8.2)
[2021-06-03 15:12] LABS: BILIRUBIN,URINE NEGATIVE (NEGATIVE); CLARITY,URINE CLEAR (CLEAR); ICTOTEST,URINE NEGATIVE
--- NOTE | 2021-06-03 15:50 | CT Report ---
PROCEDURE: HEAD WO INDICATIONS: AMS TECHNIQUE: Noncontrast 4.5 mm thick angled axial sections acquired from the foramen magnum to the vertex. For r adiation dose reduction, the following was used: automated exposure control, adjustment of mA and/or kV according to patient size. COMPARISON: CT head dated 01/17/2019, and 01/16/2019. FINDINGS: Image quality: Excellent. CSF spaces: Basal cisterns are patent. No extra-axial fluid collections. Ventricles are normal in size and shape. Brain: No midline shift. No intracranial masses or hemorrhage. There is diffuse cerebral and cereb ellar cortical atrophy. Extensive periventricular and deep white matter chronic small vessel ischemic changes also seen. Kenny-white matter interface is normal. Skull and face: Calvarium and visualized facial bones are intact, without suspicious lesions. Sinuses: Visualized sinuses and mastoids are clear. IMPRESSION: 1. No CT evidence of acute intracranial pathology. 2. Diffuse atrophy and extensive white matter chronic small vessel ischemic changes. Reviewed by: Anthony Oliveira MD on 06/03/2021 3:49 PM PST Approved by: Anthony Oliveira MD on 06/03/2021 3:49 PM PST Station ID: [id number]
[2021-06-03] MEDS ORDERED: ENOXAPARIN 60 MG/0.6 ML SYRINGE SUBQ STA (15:56)
--- NOTE | 2021-06-03 16:01 | CT Report ---
PROCEDURE: ANGIO CHEST W/WO INDICATIONS: hypoxia CONTRAST: IV CONTRAST: Optiray 320 ml: 80 PO CONTRAST: *NO PO CONTRAST TECHNIQUE: After the administration of intravenous contrast, 2 mm axial images were acquired from the pulmonary apices to the posterior costophrenic angles during the arterial phase. In addition, 1 mm lung kernel and 5 mm soft tissue kernel reconstructions were performed. 3-dimensional coronal oblique maximum int ensity projection (MIP) reformats, 8 mm axial MIP, and 5 mm coronal and sagittal MPR reformats were t hen performed through the thorax. For radiation dose reduction, the following was used: automated exp osure control, adjustment of mA and/or kV according to patient size. COMPARISON: Chest radiograph from the same day and 01/20/2019 FINDINGS: Image quality: Excellent. Pulmonary arteries: Pulmonary arteries are slightly prominent in size. There are filling defects seen in most distal left main pulmonary artery extending into segmental and subsegmental branches of left lower lobe pulmonary arteries. Similar filling defects involving distal right main pulmonary artery extending to right middle and lower lobe pulmonary artery branches are also seen. Lungs and pleura: Wedge-shaped groundglass opacity involving posterior lateral aspect of right middle lobe adjacent to major fissure which may represent early infarction in this area. Scattered atelecta sis in posterior and lateral periphery of bilateral lung mendoza are seen. There is no pleural effusio ns or pneumothorax. Central and peripheral airways are patent. Mediastinum: Heart size is mildly enlarged particularly involving right atrium and ventricle concern ing for right heart strain. There is no pericardial effusion. No mediastinal or hilar adenopathy. Th oracic aorta is normal in caliber and enhancement. Esophagus is normal in caliber, without hiatal he rnia. Bones and chest wall: No suspicious bony lesions. Ribs and thoracic spine appear intact throughout. No axillary or supraclavicular adenopathy. The thyroid is normal in size and there are no incident al findings. Abdomen: Visualized upper abdominal solid organs appear normal in the early arterial phase of enhanc ement. Multiple gallstones are seen in dependent portion of gallbladder lumen. IMPRESSION: 1. Extensive bilateral pulmonary emboli predominantly involving bilateral lower lobes and right middl e lobe with suggestion of early developing pulmonary infarct involving posterior lateral aspect of ri ght middle lobe adjacent to major fissure. No thoracic aortic aneurysm or dissection. 2. Cardiomegaly with signs of right heart strain as above. No pericardial effusion. 3. Scattered atelectasis in posterior lateral periphery of bilateral mid to lower lung mendoza. No ple ural effusion or pneumothorax. Airway is patent. 4. Incidentally noted of cholelithiasis. Please correlate with CT of abdomen and pelvis findings. Findings were reported to ER attending Dr. Ronquillo at 3:55 PM on 06/03/2021. CLINICAL RECOMMENDATION STATEMENTS: In patients <35 years with an ITN detected on CT, MRI, or extrathyroidal ultrasound, the Committee re commends further evaluation with dedicated thyroid ultrasound if the nodule is "e1 cm and has no susp icious imaging features, and if the patient has normal life expectancy. In patients "e35 years with an ITN detected on CT, MRI, or extrathyroidal ultrasound, the Committee r ecommends further evaluation with dedicated thyroid ultrasound if the nodule is "e1.5 cm and has no s uspicious imaging features, and if the patient has normal life expectancy. (ACR, 2014) Reviewed by: Anthony Oliveira MD on 06/03/2021 4:00 PM PST Approved by: Anthony Oliveira MD on 06/03/2021 4:00 PM PST Station ID: [id number]
--- NOTE | 2021-06-03 16:09 | CT Report ---
PROCEDURE: Abdomen/Pelvis W INDICATIONS: abd pain, confusion CONTRAST: IV CONTRAST: Optiray 320 ml: 80 PO CONTRAST: *NO PO CONTRAST TECHNIQUE: After the administration of IV contrast, 5 mm thick sections acquired from the diaphragms to the symp hysis. 5 mm thick coronal and sagittal reformats were acquired. For radiation dose reduction, the f ollowing was used: automated exposure control, adjustment of mA and/or kV according to patient size. COMPARISON: None. FINDINGS: Image quality: Excellent. ABDOMEN: Lung bases: Please refer to CT angiogram of chest report for chest findings. Solid organs: Liver and spleen are normal in size and enhancement. Gallbladder contains multiple st ones in its dependent portion. No gallbladder wall thickening or pericholecystic fluid. Biliary syst em is non dilated. Pancreas enhances normally. No adrenal nodules. Kidneys demonstrate normal size and enhancement, without hydronephrosis. Peritoneum and bowel: Bowel loops demonstrate normal wall thickness and caliber. No free fluid or a ir. Extensive sigmoid diverticulosis is seen, no CT evidence of acute diverticulitis. Appendix is no t definitively visualized. No secondary signs of acute appendicitis is seen in right lower quadrant a bdomen. Nodes and vessels: No retroperitoneal or mesenteric adenopathy by size criteria. Aorta and inferior vena cava are normal in size. Tortuous thoracic aorta with mild to moderate atherosclerotic disease is seen. Miscellaneous: No ventral hernias. PELVIS: Genitourinary: Bladder wall thickness is normal. Miscellaneous: Right inguinal hernia is seen containing fat only. No inguinal lymphadenopathy. Bones: No suspicious bony lesions. No vertebral body compression fractures. IMPRESSION: 1. Cholelithiasis without evidence of acute cholecystitis. No biliary ductal dilatation. 2. No bowel obstruction or abnormal bowel wall thickening. No free fluid of free air. Extensive colon ic diverticulosis without evidence of acute diverticulitis. 3. Tortuous and abdominal aorta. No abdominal aortic aneurysm. Mild to moderate atherosclerotic disea se. Reviewed by: Anthony Oliveira MD on 06/03/2021 4:07 PM PST Approved by: Anthony Oliveira MD on 06/03/2021 4:07 PM PST Station ID: [id number]
[2021-06-03] MEDS ORDERED: oxyCODONE 5 MG TABLET PO PRN (16:12)
[2021-06-03] MEDS ORDERED: SODIUM CHLORIDE FLUSH 0.9% 10 ML SYRINGE IVP PRN (16:12)
[2021-06-03] MEDS ORDERED: ONDANSETRON 4 MG/2 ML VIAL IVP PRN (16:12)
[2021-06-03] MEDS ORDERED: ONDANSETRON ODT 4 MG TABLET TL PRN (16:12)
--- NOTE | 2021-06-03 16:34 | PHARMACY PROGRESS NOTE ---
- Best Possible Medication History Admit Date and Time: Processed by: Pharmacy Medication History completed: Yes Secondary Source(s): Facility MAR as ONLY source As the person ultimately responsible for medication therapy, providers are able to order a medication from an existing home medication list in [facility] via the "Reconcile Routine" prior to Confirmation of that medication by technician support association. Such practice is discouraged except when the physician, in their clinical judgment, deems that a medical need exists for a medication without regard to previous use.
--- NOTE | 2021-06-03 16:48 | HISTORY & PHYSICAL EXAMINATION ---
Chief Complaint - Chief Complaint Chief Complaint: Weakness History of Present Illness - Admitted From Admitted From:: ED via EMS from [facility] - History Obtained From Records Reviewed: [facility] History obtained from: EMR, ED provider note Exam Limitations: Altered mental status, patient is not able to provide much information - History of Present Illness HPI Comment/Other: Anita is an 89 year old female with a history of hypertension, hypothyroidism and CVA with residual left-sided deficits who is being admitted for bilateral pulmonary embolism. She lives at [facility] in [place] and was brought to the ED by EMS after she became increasingly confused, refused to take her meds, and developed right-sided abdominal pain. There was no reported fall or trauma. She is very disoriented and has difficulty communicating. Anita knows that she doesn't feel good, but she's not sure why or how long she has felt this way. EKG shows sinus tachycardia, premature atrial contraction, and evidence of old infarct. CXR showed a minimal hazy opacity in the right middle lung that could be attributed to atelectasis. CTA shows extensive bilateral pulmonary emboli predominantly involving the lower lungs and right middle lung, cardiomegaly with signs of heart strain, and scattered atelectasis in the posterior lateral per iphery and bilateral lung mendoza. CTA abdomen/pelvis shows cholelithiasis without cholangitis, no obstructions, extensive diverticulosis without diverticulitis, and tortuous abdominal aorta without aneurysm. Her urine shows no signs of infection, but does show ketonuria. WBC count is 11.6, Hgb is 16.4, Na 148, BUN 41, Cr 1.1, glucose 152. BP 154-178/96-109, pulse 82-101, RR 16-21, 37.4 C, 97% O2 on 2 L nasal cannula. 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 She cannot recall her family medical history Living arrangement: assisted Social History Notes: She denies alcohol and tobacco use - POLST Patient has POLST: Yes POLST Status: Full Code Meds/Allgy - Home Medications Home Medications: Ambulatory Orders Medication Instructions Recorded Confirmed Levothyroxine Sodium [Synthroid] 100 mcg PO QDAC 01/15/19 06/03/21 Felodipine [Felodipine ER] 2.5 mg PO DAILY 01/17/19 06/03/21 Glucosamine Sulfate 500 mg PO DAILY 01/17/19 06/03/21 Acetaminophen [Tylenol] 650 mg PO Q4H PRN 06/03/21 06/03/21 Calcium Carbonate [Tums (Calcium 500 mg PO TIDWM 06/03/21 06/03/21 Carbonate 500mg)] Cholecalciferol (Vitamin D3) 400 unit PO DAILY 06/03/21 06/03/21 [Vitamin D3] metFORMIN [Glucophage] 500 mg PO BIDWM 06/03/21 06/03/21 - Allergies Allergies/Adverse Reactions: Allergies Allergy/AdvReac Type Severity Reaction Status Date / Time No Known Drug Allergies Allergy Verified 06/03/21 14:08 Review of Systems - Constitutional Constitutional: reports: Fatigue, Weakness - Cardiovascular Cariovascular: denies: Chest pain - Respiratory Respiratory: denies: SOB at rest - Genitourinary Genitourinary: denies: Dysuria - Other Findings Other Findings: ROS is very limited as the patient's mental status is altered. She is not able to provide much information. Prior Level of Functionality: Limited knowledge of PLOF as the patient is not able to provide much information at this time. Unable to reach any family members to clarify. Lives at [facility] in [place], uses a walker to ambulate. Exam - Vital Signs Reviewed Vital Signs: Yes Vital Signs: Vital Signs x48h Temp Pulse Resp BP Pulse Ox 06/03/21 16:44 21 92 06/03/21 16:08 37.4 C 82 13 178/96 H 95 06/03/21 14:33 99 17 154/108 H 99 06/03/21 13:53 37.6 C 101 H 16 154/109 H 89 L - Physical Exam General Appearance: positive: No acute distress, Lethargic, Other (Lying in bed wrapped in blankets, has difficulty understanding and answering my questions. Very limited ability to communicate) Eyes Bilateral: positive: Normal inspection ENT: positive: Dry mucous membranes (Lips are chapped, mouth and tongue are dry) Neck: positive: No JVD. negative: Stiff neck Respiratory: positive: Chest non-tender, No respiratory distress. negative: Wheezes, Rales, Rhonchi Cardiovascular: positive: Regular rate & rhythm, No murmur, No gallop. negative: Friction rub Peripheral Pulses: positive: 2+ Abdomen: positive: Nml bowel sounds, No distention, Tenderness (Diffuse left- sided pain on palpation) Skin: positive: No rash, Warm, Dry Extremities: positive: No pedal edema, Calf tenderness Neurologic/Psychiatric: positive: CN's nml (2-12). negative: Oriented x3 (Anita knows her name and that she lives in [place]. When asked where she is, she says "a facility with sick people") Conclusion/Plan - Problem List (1) Pulmonary embolism and infarction Conclusion/Plan: Patient presented with altered mental status and no symptoms of chest pain or SOB. Urine showed no signs of infection. Head CT negative. Troponin 12.2, EKG ruled out [place]. CXR showed minimal hazy opacity in the right middle lung. CTA shows extensive bilateral pulmonary emboli predominantly involving the lower lungs and right middle lung, cardiomegaly with signs of heart strain, and scattered atelectasis in the posterior lateral periphery and bilateral lung mendoza. Lovenox given in the ED. Will continue with Lovenox 60mg twice daily. PT 11.1, PTT 30.6, INR 1.0. Tomorrow, will switch her to Elequis 10mg bid for 7 da ys, followed by 5mg bid. (2) Altered mental status Conclusion/Plan: The patient was brought to the ED from [facility] due to confusion and refusal to take medications. She is having trouble communicating and is not sure why she is here in the hospital. History of dementia per ED provider. We have not been able to reach Anita's family to confirm and find out her baseline. This is likely a combination of her PE and poor oral intake. She also has ketonuria. We anticipate that this will improve as we hydrate and feed her and treat her PE. (3) HTN (hypertension) Conclusion/Plan: History of HTN. Takes felodipine 2.5mg daily. BP was 154/109 in the ED and increased to 178/96. We will start her on nifedipine 30mg daily and continue to monitor. (4) Hypoxia Conclusion/Plan: O2 saturation in the ED as low as 89% on room air. Improved to 97% on 2L nasal cannula. (5) Impaired renal function Conclusion/Plan: GFR 47, BUN 41, Cr 1.1. Unsure if these are her baselines or an acute process. History of rhabdomyolysis in December of 2018 after a fall. We will continue to monitor. (6) Hypernatremia Conclusion/Plan: Sodium of 148. This is likely a result of dehydration due to poor oral intake. We will give IV fluids and monitor. (7) Hypothyroidism Conclusion/Plan: TSH 0.87. Takes Synthroid 100 mcg every morning. Will resume this medication. (8) History of CVA (cerebrovascular accident) Conclusion/Plan: History of CVA with residual left-sided deficits (9) Cholelithiasis Conclusion/Plan: Cholelithiasis found incidentally on CTA. CT abdomen/pelvis confirmed cholelithiasis without evidence of cholangitis. ED provider documents right- sided abdominal pain. During my physical exam, the patient reported pain with left-sided palpation. This seems to be asymptomatic for the patient at this time. - Lab Results Fish Bones: 06/03/21 14:17 06/03/21 14:17 Core Measures - Anticipated LOS I expect patient to be DC'd or transferred within 96 hours.: Yes
[2021-06-03 17:38] LABS: B. PARAPERTUSSIS- RESP PCR PAN NOT DETECTED; B. PERTUSSIS- RESP PCR PANEL NOT DETECTED; C. PNEUMONIAE- RESP PCR PANEL NOT DETECTED; CORONAVIRUS 229E-RESP PCR NOT DETECTED; CORONAVIRUS HKU1-RESP PCR NOT DETECTED; CORONAVIRUS NL63-RESP PCR NOT DETECTED; CORONAVIRUS OC43-RESP PCR NOT DETECTED; HUMAN METAPNEUMOVIRUS NOT DETECTED; INFLUENZA A- RESP PCR PANEL NOT DETECTED; INFLUENZA B - RESP PCR PANEL NOT DETECTED; M. PNEUMONIAE- RESP PCR PANEL NOT DETECTED; PARAINFLUENZA VIRUS 1 NOT DETECTED; PARAINFLUENZA VIRUS 2 NOT DETECTED; PARAINFLUENZA VIRUS 3 NOT DETECTED; PARAINFLUENZA VIRUS 4 NOT DETECTED; RHINOVIRUS/ENTEROVIRUS NOT DETECTED; RSV- RESP PCR PANEL NOT DETECTED; SARS-CoV-2 -RESP PCR PANEL NOT DETECTED
[2021-06-03] MEDS: NIFEdipine ER 30 MG TABLET PO SCH (17:54)
[2021-06-03] MEDS: SODIUM CHLORIDE FLUSH 0.9% 10 ML SYRINGE IVP SCH (17:54)
[2021-06-03] MEDS: LACTATED RINGERS 1,000 ML IV SCH (21:11)
[2021-06-04] MEDS: LACTATED RINGERS 1,000 ML IV SCH (05:19)
[2021-06-04] MEDS: SODIUM CHLORIDE FLUSH 0.9% 10 ML SYRINGE IVP SCH ×3 (05:19→17:19)
[2021-06-04] MEDS: LEVOTHYROXINE 100 MCG TABLET PO SCH (06:29)
[2021-06-04] MEDS: APIXABAN 5 MG TABLET PO SCH ×2 (06:29→20:05)
[2021-06-04] MEDS ORDERED: ENOXAPARIN 60 MG/0.6 ML SYRINGE SUBQ SCH (07:00)
[2021-06-04] MEDS ORDERED: NIFEdipine ER 30 MG TABLET PO SCH (09:00)
[2021-06-04] MEDS: NIFEdipine ER 30 MG TABLET PO SCH (09:27)
--- NOTE | 2021-06-04 10:34 | PROVIDER PROGRESS NOTE ---
Subjective - Prog Note Date Prog Note Date: 06/04/21 Prog Note Time: 10:32 - Subjective Subjective: She was admitted the afternoon of the and was very quiet, noncommunicative, lethargic. As the course of the evening went on with hydration she was opening her eyes, and engage in conversation with very short sentences. This morning she has furrowed brow, looks uncomfortable and I asked her if she is in pain. She says now that she is just "really cold". She does not know where she is. I again asked her to make sure she is not having any chest pain, shortness of breath, abdominal pain and she tells me know. Current Medications - Current Medications Current Medications: Active Medications Acetaminophen (Acetaminophen 325 Mg Tablet) 650 mg PO Q4HR PRN PRN Reason: Pain 1 to 4 Apixaban (Apixaban 5 Mg Tablet) 10 mg PO BID [facility] Last Admin: 06/04/21 06:29 Dose: 10 mg Documented by: Lactated Ringer's (Lr) 1,000 mls @ 125 mls/hr IV .Q8H [facility] Stop: 06/04/21 10:59 Last Admin: 06/04/21 05:19 Dose: 125 mls/hr Documented by: Levothyroxine Sodium (Levothyroxine 100 Mcg Tablet) 100 mcg PO QDAC [facility] Last Admin: 06/04/21 06:29 Dose: 100 mcg Documented by: Nifedipine (Nifedipine Er 30 Mg Tablet) 30 mg PO DAILY [facility] Last Admin: 06/04/21 09:27 Dose: 30 mg Documented by: Ondansetron HCl (Ondansetron Odt 4 Mg Tablet) 4 mg TL Q6HR PRN PRN Reason: Nausea / Vomiting Ondansetron HCl (Ondansetron 4 Mg/2 Ml Vial) 4 mg IVP Q6HR PRN PRN Reason: Nausea / Vomiting Oxycodone HCl (Oxycodone 5 Mg Tablet) 5 mg PO Q4HR PRN PRN Reason: Pain 5 to 7 Sodium Chloride (Sodium Chloride Flush 0.9% 10 Ml Syringe) 10 ml IVP PRN PRN PRN Reason: NEEDED PER PROVIDER ORDERS Sodium Chloride (Sodium Chloride Flush 0.9% 10 Ml Syringe) 10 ml IVP 0100 ,0900,1700 [facility] Last Admin: 06/04/21 09:27 Dose: Not Given Documented by: Levothyroxine Sodium [Synthroid] 100 mcg PO QDAC 01/15/19 Felodipine [Felodipine ER] 2.5 mg PO DAILY 01/17/19 Glucosamine Sulfate 500 mg PO DAILY 01/17/19 Acetaminophen [Tylenol] 650 mg PO Q4H PRN 06/03/21 Calcium Carbonate [Tums (Calcium Carbonate 500mg)] 500 mg PO TIDWM 06/03/21 Cholecalciferol (Vitamin D3) [Vitamin D3] 400 unit PO DAILY 06/03/21 metFORMIN [Glucophage] 500 mg PO BIDWM 06/03/21 Objective - Vital Signs/Intake & Output Reviewed Vital Signs: Yes Vital Signs: Vital Signs x48h Temp Pulse Resp BP 06/04/21 08:00 36.8 C 84 12 129/80 Intake & Output: Intake & Output 06/01/21 06/02/21 06/03/21 06/04/21 23:59 23:59 23:59 23:59 Intake Total 1540 1100 Output Total 200 125 Balance 1340 975 - Objective General Appearance: positive: No acute distress, Alert, Other (elderly withdrawn female, speaking short sentences and answering quesitons but wants to be left alone) Eyes Bilateral: positive: PERRL, EOMI ENT: positive: Dry mucous membranes Neck: positive: No JVD. negative: Stiff neck Respiratory: positive: No respiratory distress. negative: Wheezes, Rales, Rhonchi Cardiovascular: positive: Regular rate & rhythm, Systolic murmur. negative: Gallop/S4, Friction rub Abdomen: positive: Non-tender, No organomegaly, Nml bowel sounds, No distention Skin: positive: Warm, Dry Extremities: positive: Full ROM, No pedal edema Neurologic/Psychiatric: positive: CN's nml (2-12), Disoriented to place, Disoriented to time. negative: Motor nml (weak, not able to sit up for me, ne eds assist for me to listen to lungs in back) - Lab Results Fish Bones: 06/03/21 14:17 06/03/21 14:17 Other Labs: Lab Results x24hrs 06/03/21 06/03/21 06/03/21 Range/Units 16:35 14:45 14:30 WBC (4.8-10.8) x10^3/uL RBC (4.20-5.40) 10^6/uL Hgb (12.0-16.0) g/dL Hct (37.0-47.0) % MCV (81.0-99.0) fL MCH (27.0-31.0) pg MCHC (32.0-36.0) g/dL RDW (12.0-15.0) % Plt Count (130-450) 10^3/uL MPV (7.9-10.8) fL Neut # (Auto) (1.5-6.6) 10^3/uL Lymph # (Auto) (1.5-3.5) 10^3/uL Cottle # (Auto) (0.0-1.0) 10^3/uL Eos # (Auto) (0.0-0.7) 10^3/uL Baso # (Auto) (0.0-0.1) 10^3/uL Absolute Nucleated RBC x10^3/uL Nucleated RBC % /100WBC Sodium (135-145) mmol/L Potassium (3.5-5.0) mmol/L Chloride (101-111) mmol/L Carbon Dioxide (21-32) mmol/L Anion Gap (6-13) BUN (6-20) mg/dL Creatinine (0.4-1.0) mg/dL Estimated GFR (MDRD) (>89) Glucose (70-100) mg/dL Lactic Acid 1.5 (0.5-2.2) mmol/L Calcium (8.5-10.3) mg/dL Total Bilirubin (0.2-1.0) mg/dL AST (10-42) IU/L ALT (10-60) IU/L Alkaline Phosphatase (42-121) IU/L Total Creatine Kinase (22-269) IU/L Troponin I High Sens (2.3-14.8) ng/L B-Natriuretic Peptide (5-100) pg/mL Total Protein (6.7-8.2) g/dL Albumin (3.2-5.5) g/dL Globulin (2.1-4.2) g/dL Albumin/Globulin Ratio (1.0-2.2) Lipase (22-51) U/L TSH (0.34-5.60) uIU/mL Urine Color YELLOW Urine Clarity CLEAR (CLEAR) Urine pH 5.5 (5.0-7.5) PH Ur Specific [place] 1.025 (1.002-1.030) Urine Protein TRACE (NEGATIVE) mg/dL Urine Glucose (UA) NEGATIVE (NEGATIVE) mg/dL Urine Ketones 15 H (NEGATIVE) mg/dL Urine Occult Blood NEGATIVE (NEGATIVE) Urine Nitrite NEGATIVE (NEGATIVE) Urine Bilirubin NEGATIVE (NEGATIVE) Urine Urobilinogen 1 (NORMAL) (NORMAL) E.U./dL Ur Leukocyte Esterase NEGATIVE (NEGATIVE) Ur Microscopic Review NOT INDICATED Urine Culture Comments NOT INDICATED Nasal Adenovirus (PCR) NOT DETECTED Nasal B. parapertussis DNA (PCR) NOT DETECTED Nasal Coronavir 229E PCR NOT DETECTED Nasal Coronavir HKU1 PCR NOT DETECTED Nasal Coronavir NL63 PCR NOT DETECTED Nasal Coronavir OC43 PCR NOT DETECTED Nasal Enterovir/Rhinovir PCR NOT DETECTED Nasal Influenza B PCR NOT DETECTED Nasal Influenza A PCR NOT DETECTED Nasal Parainfluen 1 PCR NOT DETECTED Nasal Parainfluen 2 PCR NOT DETECTED Nasal Parainfluen 3 PCR NOT DETECTED Nasal Parainfluen 4 PCR NOT DETECTED Nasal RSV (PCR) NOT DETECTED Nasal B.pertussis DNA PCR NOT DETECTED Nasal C.pneumoniae (PCR) NOT DETECTED Rojas Human Metapneumo PCR NOT DETECTED Nasal M.pneumoniae (PCR) NOT DETECTED Nasal SARS-CoV-2 (PCR) NOT DETECTED 06/03/21 06/03/21 06/03/21 Range/Units 14:17 14:17 14:17 WBC (4.8-10.8) x10^3/uL RBC (4.20-5.40) 10^6/uL Hgb (12.0-16.0) g/dL Hct (37.0-47.0) % MCV (81.0-99.0) fL MCH (27.0-31.0) pg MCHC (32.0-36.0) g/dL RDW (12.0-15.0) % Plt Count (130-450) 10^3/uL MPV (7.9-10.8) fL Neut # (Auto) (1.5-6.6) 10^3/uL Lymph # (Auto) (1.5-3.5) 10^3/uL Cottle # (Auto) (0.0-1.0) 10^3/uL Eos # (Auto) (0.0-0.7) 10^3/uL Baso # (Auto) (0.0-0.1) 10^3/uL Absolute Nucleated RBC x10^3/uL Nucleated RBC % /100WBC Sodium (135-145) mmol/L Potassium (3.5-5.0) mmol/L Chloride (101-111) mmol/L Carbon Dioxide (21-32) mmol/L Anion Gap (6-13) BUN (6-20) mg/dL Creatinine (0.4-1.0) mg/dL Estimated GFR (MDRD) (>89) Glucose (70-100) mg/dL Lactic Acid (0.5-2.2) mmol/L Calcium (8.5-10.3) mg/dL Total Bilirubin (0.2-1.0) mg/dL AST (10-42) IU/L ALT (10-60) IU/L Alkaline Phosphatase (42-121) IU/L Total Creatine Kinase (22-269) IU/L Troponin I High Sens 12.2 (2.3-14.8) ng/L B-Natriuretic Peptide 40 (5-100) pg/mL Total Protein (6.7-8.2) g/dL Albumin (3.2-5.5) g/dL Globulin (2.1-4.2) g/dL Albumin/Globulin Ratio (1.0-2.2) Lipase (22-51) U/L TSH 0.87 (0.34-5.60) uIU/mL Urine Color Urine Clarity (CLEAR) Urine pH (5.0-7.5) PH Ur Specific [place] (1.002-1.030) Urine Protein (NEGATIVE) mg/dL Urine Glucose (UA) (NEGATIVE) mg/dL Urine Ketones (NEGATIVE) mg/dL Urine Occult Blood (NEGATIVE) Urine Nitrite (NEGATIVE) Urine Bilirubin (NEGATIVE) Urine Urobilinogen (NORMAL) E.U./dL Ur Leukocyte Esterase (NEGATIVE) Ur Microscopic Review Urine Culture Comments Nasal Adenovirus (PCR) Nasal B. parapertussis DNA (PCR) Nasal Coronavir 229E PCR Nasal Coronavir HKU1 PCR Nasal Coronavir NL63 PCR Nasal Coronavir OC43 PCR Nasal Enterovir/Rhinovir PCR Nasal Influenza B PCR Nasal Influenza A PCR Nasal Parainfluen 1 PCR Nasal Parainfluen 2 PCR Nasal Parainfluen 3 PCR Nasal Parainfluen 4 PCR Nasal RSV (PCR) Nasal B.pertussis DNA PCR Nasal C.pneumoniae (PCR) Rojas Human Metapneumo PCR Nasal M.pneumoniae (PCR) Nasal SARS-CoV-2 (PCR) 06/03/21 06/03/21 Range/Units 14:17 14:17 WBC 11.6 H (4.8-10.8) x10^3/uL RBC 5.77 H (4.20-5.40) 10^6/uL Hgb 16.4 H (12.0-16.0) g/dL Hct 52.3 H (37.0-47.0) % MCV 90.6 (81.0-99.0) fL MCH 28.4 (27.0-31.0) pg MCHC 31.4 L (32.0-36.0) g/dL RDW 15.4 H (12.0-15.0) % Plt Count 151 (130-450) 10^3/uL MPV 10.1 (7.9-10.8) fL Neut # (Auto) 8.6 H (1.5-6.6) 10^3/uL Lymph # (Auto) 1.7 (1.5-3.5) 10^3/uL Cottle # (Auto) 1.2 H (0.0-1.0) 10^3/uL Eos # (Auto) 0.1 (0.0-0.7) 10^3/uL Baso # (Auto) 0.0 (0.0-0.1) 10^3/uL Absolute Nucleated RBC 0.00 x10^3/uL Nucleated RBC % 0.0 /100WBC Sodium 148 H (135-145) mmol/L Potassium 4.1 (3.5-5.0) mmol/L Chloride 106 (101-111) mmol/L Carbon Dioxide 27 (21-32) mmol/L Anion Gap 15.0 H (6-13) BUN 41 H (6-20) mg/dL Creatinine 1.1 H (0.4-1.0) mg/dL Estimated GFR (MDRD) 47 L (>89) Glucose 152 H (70-100) mg/dL Lactic Acid (0.5-2.2) mmol/L Calcium 10.1 (8.5-10.3) mg/dL Total Bilirubin 1.4 H (0.2-1.0) mg/dL AST 15 (10-42) IU/L ALT 17 (10-60) IU/L Alkaline Phosphatase 82 (42-121) IU/L Total Creatine Kinase 84 (22-269) IU/L Troponin I High Sens (2.3-14.8) ng/L B-Natriuretic Peptide (5-100) pg/mL Total Protein 8.2 (6.7-8.2) g/dL Albumin 4.2 (3.2-5.5) g/dL Globulin 4.0 (2.1-4.2) g/dL Albumin/Globulin Ratio 1.1 (1.0-2.2) Lipase 38 (22-51) U/L TSH (0.34-5.60) uIU/mL Urine Color Urine Clarity (CLEAR) Urine pH (5.0-7.5) PH Ur Specific [place] (1.002-1.030) Urine Protein (NEGATIVE) mg/dL Urine Glucose (UA) (NEGATIVE) mg/dL Urine Ketones (NEGATIVE) mg/dL Urine Occult Blood (NEGATIVE) Urine Nitrite (NEGATIVE) Urine Bilirubin (NEGATIVE) Urine Urobilinogen (NORMAL) E.U./dL Ur Leukocyte Esterase (NEGATIVE) Ur Microscopic Review Urine Culture Comments Nasal Adenovirus (PCR) Nasal B. parapertussis DNA (PCR) Nasal Coronavir 229E PCR Nasal Coronavir HKU1 PCR Nasal Coronavir NL63 PCR Nasal Coronavir OC43 PCR Nasal Enterovir/Rhinovir PCR Nasal Influenza B PCR Nasal Influenza A PCR Nasal Parainfluen 1 PCR Nasal Parainfluen 2 PCR Nasal Parainfluen 3 PCR Nasal Parainfluen 4 PCR Nasal RSV (PCR) Nasal B.pertussis DNA PCR Nasal C.pneumoniae (PCR) Rojas Human Metapneumo PCR Nasal M.pneumoniae (PCR) Nasal SARS-CoV-2 (PCR) ABX Reporting Has patient been on IV antibiotics over the past 48 hours?: No Assessment/Plan - Problem List (1) Pulmonary embolism and infarction Impression: Patient presented with altered mental status and no symptoms of chest pain or SOB. Urine showed no signs of infection. Head CT negative. Troponin 12.2, EKG ruled out [place]. CXR showed minimal hazy opacity in the right middle lung.Becasue she was hypoxic, a CTA was done and showed extensive bilateral pulmonary emboli predominantly involving the lower lungs and right middle lung, cardiomegaly with signs of heart strain, and scattered atelectasis in the posterior lateral periphery and bilateral lung mendoza. Lovenox given in the ED. Will started Lovenox 60mg twice daily. PT 11.1, PTT 30.6, INR 1.0. Today, will switch her to Elequis 10mg bid for 7 days, followed by 5mg bid. (2) Altered mental status improving. Conclusion/Plan: The patient was brought to the ED from [facility] due to confusion and refusal to take medications. She is having trouble communicating and is not sure why she is here in the hospital. History of dementia per ED provider. We have not been able to reach Anita's family to confirm and find out her baseline. I left a message with the person to notify, her daughter, and no call back. The encephalopathy is likely a combination of her PE and poor oral intake. She also has ketonuria. We anticipate that this will continue to improve as we hydrate and feed her and treat her PE. We just need to establish her baseline. I have asked RN to work with her in ambulation. We need to establish if she needs PT. This also has to be done to see which department of her [facility] she will return to. (3) HTN (hypertension) Conclusion/Plan: History of HTN. Takes felodipine 2.5mg daily. BP was 154/109 in the ED and increased to 178/96. We will start her on nifedipine 30mg daily and continue to monitor. (4) Hypoxia Conclusion/Plan: O2 saturation in the ED as low as 89% on room air. Improved to 97% on 2L nasal cannula. This morning she is 93% on 2 liters. will continue to monitor needs. (5) Impaired renal function Conclusion/Plan: GFR 47, BUN 41, Cr 1.1. Unsure if these are her baselines or an acute process. History of rhabdomyolysis in December of 2018 after a fall. We will continue to monitor. I failed to order labs for this morning so have ordered routine draw for today and daily labs to start tomorrow. (6) Hypernatremia Conclusion/Plan: Sodium of 148. This is likely a result of dehydration due to poor oral intake. We will give IV fluids and monitor. I have ordered followup labs for today. Will review once they are done. Chronic/resolved problems: (7) Hypothyroidism Conclusion/Plan: TSH 0.87. Takes Synthroid 100 mcg every morning. Will resume this medication. (8) History of CVA (cerebrovascular accident) Conclusion/Plan: History of CVA with residual left-sided deficits (9) Cholelithiasis Conclusion/Plan: Cholelithiasis found incidentally on CTA. CT abdomen/pelvis confirmed choleli thiasis without evidence of cholangitis. ED provider documents right-sided abdominal pain. During my physical exam, the patient reported pain with left- sided palpation. This seems to be asymptomatic for the patient at this time.
[2021-06-04 11:17] LABS: BASOPHILS # (AUTO) 0.1 10^3/uL (0.0-0.1); BASOPHILS % (AUTO) 0.6 %; EOSINOPHILS # (AUTO) 0.1 10^3/uL (0.0-0.7); EOSINOPHILS % (AUTO) 1.6 %; LYMPHOCYTES # (AUTO) 1.4 10^3/uL (1.5-3.5); LYMPHOCYTES % (AUTO) 16.6 %; MEAN CORPUSCULAR HEMOGLOBIN 28.6 pg (27.0-31.0); MEAN CORPUSCULAR HGB CONC 31.1 g/dL (32.0-36.0); MEAN PLATELET VOLUME 10.4 fL (7.9-10.8); MONOCYTES # (AUTO) 0.7 10^3/uL (0.0-1.0); MONOCYTES % (AUTO) 8.2 %; NEUTROPHILS # (AUTO) 6.3 10^3/uL (1.5-6.6); NEUTROPHILS % (AUTO) 72.7 %; PLT - PLATELET COUNT 135 10^3/uL (130-450); RED BLOOD COUNT 4.89 10^6/uL (4.20-5.40); RED CELL DISTRIBUTION WIDTH 14.9 % (12.0-15.0); WHITE BLOOD COUNT 8.7 x10^3/uL (4.8-10.8)
[2021-06-04 11:22] LABS: CALCIUM 8.7 mg/dL (8.5-10.3); POTASSIUM 3.7 mmol/L (3.5-5.0)
[2021-06-04] MEDS: DOCUSATE SODIUM 250 MG CAPSULE PO SCH (20:04)
[2021-06-04] MEDS: SENNA 8.6 MG TABLET PO SCH (20:04)
[2021-06-04] MEDS: ACETAMINOPHEN 325 MG TABLET PO PRN (20:05)
[2021-06-05] MEDS: SODIUM CHLORIDE FLUSH 0.9% 10 ML SYRINGE IVP SCH ×4 (00:14→20:30)
[2021-06-05] MEDS: ZINC OXIDE 20% OINT 30 GM TUBE TOP PRN ×2 (00:19→05:13)
[2021-06-05 05:30] LABS: BASOPHILS % (AUTO) 0.5 %; EOSINOPHILS # (AUTO) 0.3 10^3/uL (0.0-0.7); EOSINOPHILS % (AUTO) 3.7 %; HCT - HEMATOCRIT 42.9 % (37.0-47.0); HGB - HEMOGLOBIN 13.6 g/dL (12.0-16.0); LYMPHOCYTES # (AUTO) 2.2 10^3/uL (1.5-3.5); LYMPHOCYTES % (AUTO) 25.3 %; MEAN CORPUSCULAR HEMOGLOBIN 28.9 pg (27.0-31.0); MEAN CORPUSCULAR HGB CONC 31.7 g/dL (32.0-36.0); MEAN CORPUSCULAR VOLUME 91.1 fL (81.0-99.0); MEAN PLATELET VOLUME 10.4 fL (7.9-10.8); MONOCYTES # (AUTO) 0.9 10^3/uL (0.0-1.0); MONOCYTES % (AUTO) 10.4 %; NEUTROPHILS # (AUTO) 5.2 10^3/uL (1.5-6.6); NEUTROPHILS % (AUTO) 59.5 %; PLT - PLATELET COUNT 146 10^3/uL (130-450); RED BLOOD COUNT 4.71 10^6/uL (4.20-5.40); RED CELL DISTRIBUTION WIDTH 14.7 % (12.0-15.0); WHITE BLOOD COUNT 8.7 x10^3/uL (4.8-10.8)
[2021-06-05 05:39] LABS: CALCIUM 8.4 mg/dL (8.5-10.3); CREATININE 0.8 mg/dL (0.4-1.0); POTASSIUM 3.6 mmol/L (3.5-5.0)
[2021-06-05] MEDS: LEVOTHYROXINE 100 MCG TABLET PO SCH (06:15)
--- NOTE | 2021-06-05 08:07 | PROVIDER PROGRESS NOTE ---
Subjective - Prog Note Date Prog Note Date: 06/05/21 Prog Note Time: 08:06 - Subjective Pt reports feeling: Improved Subjective: Areli elderly female does not seem to have a lot of insight. She is very pleasant. Cooperative. When I ask about any pain she seems puzzled by the question and says that everything is fine. She says she does not feel good but she cannot say why she does not feel good. Yesterday she said she was cold, today she says she is not. But she is very specific about saying there is no chest pain, abdominal pain, joint pain. Current Medications - Current Medications Current Medications: Active Medications Acetaminophen (Acetaminophen 325 Mg Tablet) 650 mg PO Q4HR PRN PRN Reason: Pain 1 to 4 Last Admin: 06/04/21 20:05 Dose: 650 mg Documented by: Apixaban (Apixaban 5 Mg Tablet) 10 mg PO BID [facility] Last Admin: 06/04/21 20:05 Dose: 10 mg Documented by: Docusate Sodium (Docusate Sodium 250 Mg Capsule) 250 - 500 mg PO DAILY [facility] Last Admin: 06/04/21 20:04 Dose: 250 mg Documented by: Levothyroxine Sodium (Levothyroxine 100 Mcg Tablet) 100 mcg PO QDAC [facility] Last Admin: 06/05/21 06:15 Dose: 100 mcg Documented by: Multi-Ingredient Ointment (Zinc Oxide 20% Oint 30 Gm Tube) 1 applic TOP PRN PRN PRN Reason: Skin Care Last Admin: 06/05/21 05:13 Dose: 1 applic Documented by: Nifedipine (Nifedipine Er 30 Mg Tablet) 30 mg PO DAILY [facility] Last Admin: 06/04/21 09:27 Dose: 30 mg Documented by: Ondansetron HCl (Ondansetron Odt 4 Mg Tablet) 4 mg TL Q6HR PRN PRN Reason: Nausea / Vomiting Ondansetron HCl (Ondansetron 4 Mg/2 Ml Vial) 4 mg IVP Q6HR PRN PRN Reason: Nausea / Vomiting Oxycodone HCl (Oxycodone 5 Mg Tablet) 5 mg PO Q4HR PRN PRN Reason: Pain 5 to 7 Senna (Senna 8.6 Mg Tablet) 8.6 - 17.2 mg PO DAILY [facility] Last Admin: 06/04/21 20:04 Dose: 8.6 mg Documented by: Sodium Chloride (Sodium Chloride Flush 0.9% 10 Ml Syringe) 10 ml IVP PRN PRN PRN Reason: NEEDED PER PROVIDER ORDERS Sodium Chloride (Sodium Chloride Flush 0.9% 10 Ml Syringe) 10 ml IVP 0100,0900,1700 [facility] Last Admin: 06/05/21 00:14 Dose: 10 ml Documented by: Levothyroxine Sodium [Synthroid] 100 mcg PO QDAC 01/15/19 Felodipine [Felodipine ER] 2.5 mg PO DAILY 01/17/19 Glucosamine Sulfate 500 mg PO DAILY 01/17/19 Acetaminophen [Tylenol] 650 mg PO Q4H PRN 06/03/21 Calcium Carbonate [Tums (Calcium Carbonate 500mg)] 500 mg PO TIDWM 06/03/21 Cholecalciferol (Vitamin D3) [Vitamin D3] 400 unit PO DAILY 06/03/21 metFORMIN [Glucophage] 500 mg PO BIDWM 06/03/21 Objective - Vital Signs/Intake & Output Reviewed Vital Signs: Yes Vital Signs: Vital Signs x48h Temp Pulse Resp BP Pulse Ox 06/05/21 00:26 36.9 C 79 20 123/63 93 Intake & Output: Intake & Output 06/02/21 06/03/21 06/04/21 06/05/21 23:59 23:59 23:59 23:59 Intake Total 1540 3080 30 Output Total 200 425 250 Balance 1340 2655 -220 - Objective General Appearance: positive: Alert, Other (Quiet affect. Speech Is normal but slow. 5 feet 3 inches tall and weighs 58 kg.) Eyes Bilateral: positive: PERRL, EOMI ENT: positive: No signs of dehydration Neck: positive: No JVD. negative: Stiff neck Respiratory: positive: No respiratory distress. negative: Wheezes, Rales, Rhonchi Cardiovascular: positive: Regular rate & rhythm. negative: Gallop/S4, Friction rub Abdomen: positive: Non-tender, No organomegaly, Nml bowel sounds, No distention Skin: positive: Warm, Dry Extremities: positive: Full ROM, No pedal edema Neurologic/Psychiatric: positive: CN's nml (2-12), Motor nml (She is at her baseline. She needed a little help of learning how to roll over in bed to then sit up. She then spontaneously stands and using a walker is walking in the room without any difficulty or ataxia. Physical therapy feels she is at her baseline.), Disoriented to place, Disoriented to time - Lab Results Fish Bones: 06/05/21 05:11 06/05/21 05:11 Other Labs: Lab Results x24hrs 06/05/21 06/05/21 06/04/21 Range/Units 05:11 05:11 10:56 WBC 8.7 (4.8-10.8) x10^3/uL RBC 4.71 (4.20-5.40) 10^6/uL Hgb 13.6 (12.0-16.0) g/dL Hct 42.9 (37.0-47.0) % MCV 91.1 (81.0-99.0) fL MCH 28.9 (27.0-31.0) pg MCHC 31.7 L (32.0-36.0) g/dL RDW 14.7 (12.0-15.0) % Plt Count 146 (130-450) 10^3/uL MPV 10.4 (7.9-10.8) fL Neut # (Auto) 5.2 (1.5-6.6) 10^3/uL Lymph # (Auto) 2.2 (1.5-3.5) 10^3/uL [place] # (Auto) 0.9 (0.0-1.0) 10^3/uL Eos # (Auto) 0.3 (0.0-0.7) 10^3/uL Baso # (Auto) 0.0 (0.0-0.1) 10^3/uL Absolute Nucleated RBC 0.00 x10^3/uL Nucleated RBC % 0.0 /100WBC Sodium 139 146 H (135-145) mmol/L Potassium 3.6 3.7 (3.5-5.0) mmol/L Chloride 103 109 (101-111) mmol/L Carbon Dioxide 25 27 (21-32) mmol/L Anion Gap 11.0 10.0 (6-13) BUN 25 H 24 H (6-20) mg/dL Creatinine 0.8 1.0 (0.4-1.0) mg/dL Estimated GFR (MDRD) 68 L 52 L (>89) Glucose 152 H 281 H (70-100) mg/dL Calcium 8.4 L 8.7 (8.5-10.3) mg/dL 06/04/ Range/Units 10:56 WBC 8.7 (4.8-10.8) x10^3/uL RBC 4.89 (4.20-5.40) 10^6/uL Hgb 14.0 (12.0-16.0) g/dL Hct 45.0 (37.0-47.0) % MCV 92.0 (81.0-99.0) fL MCH 28.6 (27.0-31.0) pg MCHC 31.1 L (32.0-36.0) g/dL RDW 14.9 (12.0-15.0) % Plt Count 135 (130-450) 10^3/uL MPV 10.4 (7.9-10.8) fL Neut # (Auto) 6.3 (1.5-6.6) 10^3/uL Lymph # (Auto) 1.4 L (1.5-3.5) 10^3/uL [place] # (Auto) 0.7 (0.0-1.0) 10^3/uL Eos # (Auto) 0.1 (0.0-0.7) 10^3/uL Baso # (Auto) 0.1 (0.0-0.1) 10^3/uL Absolute Nucleated RBC 0.00 x10^3/uL Nucleated RBC % 0.0 /100WBC Sodium (135-145) mmol/L Potassium (3.5-5.0) mmol/L Chloride (101-111) mmol/L Carbon Dioxide (21-32) mmol/L Anion Gap (6-13) BUN (6-20) mg/dL Creatinine (0.4-1.0) mg/dL Estimated GFR (MDRD) (>89) Glucose (70-100) mg/dL Calcium (8.5-10.3) mg/dL ABX Reporting Has patient been on IV antibiotics over the past 48 hours?: No Assessment/Plan - Problem List (1) Pulmonary embolism and infarction Impression: Patient presented with altered mental status and no symptoms of chest pain or SOB. Urine showed no signs of infection. Head CT negative. Troponin 12.2, EKG ruled out WA. CXR showed minimal hazy opacity in the right middle lung.Because she was hypoxic, a CTA was done and showed extensive bilateral pulmonary emboli predominantly involving the lower lungs and right middle lung, cardiomegaly with signs of heart strain, and scattered atelectasis in the posterior lateral periphery and bilateral lung mendoza. Lovenox given in the ED. Will started Lovenox 60mg twice daily. PT 11.1, PTT 30.6, INR 1.0. 06/04, switched her to Eliquis 10mg bid for 7 days, followed by 5mg bid. She has remained hemodynamically stable. Has required 1 to 2 L of oxygen. I think she can go back to her assisted living facility today if they accept patients with oxygen. The oxygen should be temporary. (2) Altered mental status resolved. Conclusion/Plan: The patient was brought to the ED from [facility] due to confusion and refusal to take medications. She is having trouble communicating and is not sure why she is here in the hospital. History of dementia per ED provider. We have not been able to reach Anita's family to confirm and find out her baseline. I left a message with the person to notify, her daughter, and no call back. The encephalopathy is likely a combination of her PE and poor oral intake. She also has ketonuria. We anticipate that this will continue to improve as we hydrate and feed her and treat her PE. Her son is called. Apparently her daughter is not the POA even though that is the number left in our face sheet to call. Her son is. Baseline is that of an ambulatory, forgetful elderly woman. She does walk with a walker in her assisted living facility. Physical therapy is seeing her today. He was able to demonstrate that she has some forgetfulness, but she cannot get up out of bed, stand from a sitting position using her walker and walk a few feet. No tachypnea, no chest pain, no ataxia. Follows prompts well. (3) HTN (hypertension) Conclusion/Plan: History of HTN. Takes felodipine 2.5mg daily. BP was 154/109 in the ED and increased to 178/96. We will start her on nifedipine 30mg daily and continue to monitor. (4) Hypoxia Conclusion/Plan: O2 saturation in the ED as low as 89% on room air. Improved to 97% on 2L nasal cannula. This morning she is 92% on 1 liter. will continue to monitor needs. I will asked discharge planning to contact the assisted living facility. I do not know if is possible to send her home on temporary oxygen or we need for her to be on room air. If she can go with oxygen she could probably go Back to [facility] tomorrow morning. (5) Impaired renal function Conclusion/Plan: GFR 47, BUN 41, Cr 1.1. Unsure if these are her baselines or an acute process. History of rhabdomyolysis in December of 2018 after a fall. We will continue to monitor. I failed to order labs for this morning so have ordered routine draw for today and daily labs to start tomorrow. (6) Hypernatremia Conclusion/Plan: Sodium of 148. This is likely a result of dehydration due to poor oral intake. We will give IV fluids and monitor. I have ordered followup labs for today. Will review once they are done. Chronic/resolved problems: (7) Hypothyroidism Conclusion/Plan: TSH 0.87. Takes Synthroid 100 mcg every morning. Will resume this medication. (8) History of CVA (cerebrovascular accident) Conclusion/Plan: History of CVA with residual left-sided deficits (9) Cholelithiasis Conclusion/Plan: Cholelithiasis found incidentally on CTA. CT abdomen/pelvis confirmed cholelithiasis without evidence of cholangitis. ED provider documents right- sided abdominal pain. During my physical exam, the patient reported pain with left-sided palpation. This seems to be asymptomatic for the patient at this time.
[2021-06-05] MEDS: APIXABAN 5 MG TABLET PO SCH ×2 (09:06→20:26)
[2021-06-05] MEDS: DOCUSATE SODIUM 250 MG CAPSULE PO SCH ×2 (09:06→09:59)
[2021-06-05] MEDS: NIFEdipine ER 30 MG TABLET PO SCH (09:06)
[2021-06-05] MEDS: SENNA 8.6 MG TABLET PO SCH ×2 (09:11→09:59)
[2021-06-05 16:05] LABS: B. PARAPERTUSSIS- RESP PCR PAN NOT DETECTED; B. PERTUSSIS- RESP PCR PANEL NOT DETECTED; C. PNEUMONIAE- RESP PCR PANEL NOT DETECTED; CORONAVIRUS 229E-RESP PCR NOT DETECTED; CORONAVIRUS HKU1-RESP PCR NOT DETECTED; CORONAVIRUS NL63-RESP PCR NOT DETECTED; CORONAVIRUS OC43-RESP PCR NOT DETECTED; HUMAN METAPNEUMOVIRUS NOT DETECTED; INFLUENZA A- RESP PCR PANEL NOT DETECTED; INFLUENZA B - RESP PCR PANEL NOT DETECTED; M. PNEUMONIAE- RESP PCR PANEL NOT DETECTED; PARAINFLUENZA VIRUS 1 NOT DETECTED; PARAINFLUENZA VIRUS 2 NOT DETECTED; PARAINFLUENZA VIRUS 3 NOT DETECTED; PARAINFLUENZA VIRUS 4 NOT DETECTED; RHINOVIRUS/ENTEROVIRUS NOT DETECTED; RSV- RESP PCR PANEL NOT DETECTED; SARS-CoV-2 -RESP PCR PANEL NOT DETECTED
[2021-06-05] MEDS: ACETAMINOPHEN 325 MG TABLET PO PRN (16:48)
[2021-06-06] MEDS: ZINC OXIDE 20% OINT 30 GM TUBE TOP PRN ×2 (00:12→04:15)
[2021-06-06] MEDS: SODIUM CHLORIDE FLUSH 0.9% 10 ML SYRINGE IVP SCH (00:13)
[2021-06-06] MEDS: LEVOTHYROXINE 100 MCG TABLET PO SCH (05:34)
[2021-06-06 05:38] LABS: BASOPHILS % (AUTO) 0.4 %; EOSINOPHILS # (AUTO) 0.3 10^3/uL (0.0-0.7); EOSINOPHILS % (AUTO) 3.3 %; HCT - HEMATOCRIT 39.8 % (37.0-47.0); HGB - HEMOGLOBIN 12.8 g/dL (12.0-16.0); LYMPHOCYTES # (AUTO) 1.4 10^3/uL (1.5-3.5); LYMPHOCYTES % (AUTO) 16.2 %; MEAN CORPUSCULAR HGB CONC 32.2 g/dL (32.0-36.0); MEAN PLATELET VOLUME 10.1 fL (7.9-10.8); MONOCYTES # (AUTO) 0.7 10^3/uL (0.0-1.0); MONOCYTES % (AUTO) 8.5 %; NEUTROPHILS % (AUTO) 70.7 %; PLT - PLATELET COUNT 156 10^3/uL (130-450); RED BLOOD COUNT 4.42 10^6/uL (4.20-5.40); RED CELL DISTRIBUTION WIDTH 14.5 % (12.0-15.0); WHITE BLOOD COUNT 8.5 x10^3/uL (4.8-10.8)
[2021-06-06 05:47] LABS: CALCIUM 8.3 mg/dL (8.5-10.3); POTASSIUM 3.8 mmol/L (3.5-5.0)
--- NOTE | 2021-06-06 08:32 | Discharge Plan ---
"Discharge Plan for SNF / [facility] - Discharge Plan And Transition Orders Problem Reviewed?: Yes Disposition: 01 Home, Self Care Condition: Good Allergies and Adverse Reactions: Allergies Allergy/AdvReac Type Severity Reaction Status Date / Time No Known Drug Allergies Allergy Verified 06/03/21 14:08 Health Concerns: This is a emil lady with dementia that lives in an assisted living facility. She has become increasingly confused and was brought to the emergency room. In the emergency room we found her to be dehydrated, with a low oxygen level and subsequent evaluation showed her to have bilateral subsegmental pulmonary emboli. Encephalopathy has gradually improved or resolved. She is back to her baseline dementia status. She was supplemented with IV fluids to treat the lack of p.o. intake and she is now eating normally. Plan of Treatment: Eliquis for the next 3 months. She should be seen by her primary care provider close to the end of 3 months to decide how much longer she should be continued in anticoagulation or if she should be stopped. Care Goals: To complete therapy for pulmonary embolism. Assessment: Patient has dementia. She is not able to follow treatment plan. - SNF / [facility] Transition Orders Admit to (Facility): [facility] Under the care of (Name): Maryellen Jennifer Discharge Diagnosis: 1. Bilateral pulmonary embolism 2. Acute hypoxia 3. Metabolic encephalopathy, resolved 4. Hypertension 5. Acute kidney insufficiency, resolved 6. Hypernatremia resolved 7. Hypothyroidism 8. History of stroke 9. Asymptomatic cholelithiasis Other Notification Orders: Call PCP immediately if patient develops dyspnea, chest pain/tightness or edema. House Bowel Program: Yes Additional Bowel Program Orders: If no BM after 2 days, nurse may give M.O.M. 30ml PO PRN and/or ducolax Supp 1 MA and/or KELLY 250mg P.O., and/or senna 1-2 tabs PO. On day 3 nurse may give repeat above order until residents constipation is resolved. Annual Influenza Vaccine (between Mar 23 and October 20): Yes Medication Orders: PLEASE REFER TO THE DISCHARGE MEDICATION LIST. Insulin Orders?: No - Medications New Prescriptions: Apixaban [Eliquis] 10 mg PO BID #8 tablet - Diet Type: Geriatric Texture: Regular Liquids: Thin May have monthly special meal: Yes - Therapies | Activity Rehabilitation Potential: Return to independent living Activity: Activity as Tolerated"
[2021-06-06] MEDS: APIXABAN 5 MG TABLET PO SCH (08:41)
[2021-06-06] MEDS: DOCUSATE SODIUM 250 MG CAPSULE PO SCH (08:41)
[2021-06-06] MEDS: SENNA 8.6 MG TABLET PO SCH (08:42)
[2021-06-06] MEDS: NIFEdipine ER 30 MG TABLET PO SCH (08:42)
--- NOTE | 2021-06-06 12:39 | DISCHARGE SUMMARY ---
"Discharge Summary Admit Date: 06/03/21 Discharge Date: 06/06/21 Discharging Provider: Evelyne Santillan MD Primary Care Provider: Maryellen Rodriguez MD Code Status: Attempt Resuscitation Condition at Discharge: Good Discharge Disposition: 01 Home, Self Care - DIAGNOSES Discharge Diagnoses with Status of Each Condition: 1. Pulmonary embolism and infarction 2. Altered mental status 3. Hypertension 4. Hypoxia, resolved 5. Acute kidney insufficiency 6. Hypernatremia resolved 7. Hypothyroidism 8. History of stroke with residual left-sided deficit 9. Cholelithiasis - HPI History of Present Illness: Anita is an 89 year old female with a history of hypertension, hypothyroidism and CVA with residual left-sided deficits who is being admitted for bilateral pulmonary embolism. She lives at [facility] in [place] and was brought to the ED by EMS after she became increasingly confused, refused to take her meds, and developed right-sided abdominal pain. There was no reported fall or trauma. She is very disoriented and has difficulty communicating. Anita knows that she doesn't feel good, but she's not sure why or how long she has felt this way. EKG shows sinus tachycardia, premature atrial contraction, and evidence of old infarct. CXR showed a minimal hazy opacity in the right middle lung that could be attributed to atelectasis. CTA shows extensive bilateral pulmonary emboli predominantly involving the lower lungs and right middle lung, cardiomegaly with signs of heart strain, and scattered atelectasis in the posterior lateral periphery and bilateral lung mendoza. CTA abdomen/pelvis shows cholelithiasis without cholangitis, no obstructions, extensive diverticulosis without diverticulitis, and tortuous abdominal aorta without aneurysm. Her urine shows no signs of infection, but does show ketonuria. WBC count is 11.6, Hgb is 16.4, Na 148, BUN 41, Cr 1.1, glucose 152. BP 154-178/96-109, pulse 82-101, RR 16-21, 37.4 C, 97% O2 on 2 L nasal cannula. - Past Medical History Cardiovascular: reports: Hypertension Neuro: reports: CVA Endocrine/Autoimmune: reports: HyPOthyroidism Musculoskeletal: reports: Osteoarthritis, Fatigue, Chronic back pain MRSA Hx?: No - Past Surgical History /[employer]: reports: Other - CONSULTS | PROCEDURES Procedures: 1. Chest x-ray with minimal hazy opacity in the right midlung field. Atelectasis versus inflammatory etiology. 2. Head CT without CT evidence of acute intracranial pathology. Diffuse atrophy and extensive white matter chronic small vessel ischemic changes. 3. Chest thorax CT angiogram with filling defects seen in the most distal left main pulmonary artery extending into segmental and subsegmental branches of the left lower lobe pulmonary arteries. Similar filling defects involving the distal right main pulmonary artery extending to the right middle and lower lobe pulmonary artery branches seen. Wedge-shaped groundglass opacities involving the posterior lateral aspect of the right middle lobe adjacent to the major fissure representing early infarction. Heart size mildly enlarged involving right atrium and ventricle concerning for right heart strain. 4. Abdomen pelvis CT showing multiple gallstones in the gallbladder. But no wall thickening or pericholecystic fluid. Biliary system not dilated. Pancreas enhance normally. No hydronephrosis. Bowel normal wall thickness and caliber. No free fluid or air. No secondary signs of appendicitis. No retroperitoneal or mesenteric adenopathy. - HOSPITAL COURSE Hospital Course: The patient was given an immediate injection of Lovenox. She was then transitioned to Eliquis the next day. Encephalopathy appeared to resolve with hydration, and expectant observation. She worked with physical therapy since she was weaker than normal but by the time of discharge she was described as being back to her baseline. She is able to roll over to the side of the bed, go from supine to sitting, and then sitting to standing with a walker. She will need to be on Eliquis for minimum of 3 months. She should establish a visit with her primary care provider in the next 2 weeks. Eliquis is 10 mg twice daily for 7 days. Her first dose was June 04 at 7 in the morning. As such her last dose will be June 10 at 2100. She should then transition to 5 mg p.o. twice daily on June 11. By discharge altered mental status had resolved. Her hypoxia had resolved. Acute kidney insufficiency present on admission resolved with IV fluid hydration. The hyponatremia also resolved. She was kept on her usual medications for hypothyroidism and hypertension. Cholelithiasis was not symptomatic. Greater than 30 minutes was spent coordinating discharge. On discharge her temperature was 36.3. Heart rate 79. Blood pressure 125/62. Respirations 16. 94% on room air. She is a very quiet elderly female. 5 feet 3 inches tall and weighs 58 kg. She is responsive, watches you walk in her room, but she is very introverted and prefers to be in a darkened room, watching TV with low volume. Neck is supple. Lungs are clear to auscultation and percus trish. No tachypnea no increased respiratory effort. PMI is normally placed with a regular rate and rhythm. The abdomen is soft and nontender with normal bowel sounds. Extremities are without edema. She is confused. She is oriented to person and she knew that she was in a medical place but not the name or why she was here. She is calm and cooperative. She needs contact-guard assist cueing for sequencing of movement. She is able to walk 35 feet with a front wheel walker. She requires contact-guard assist and demonstrates fair toe clearance, but has decreased stride length. Decreased nhi. She is already getting physical therapy 2 times a week at her assisted living facility. We would recommend that she continue with that. - ALLERGIES Allergies/Adverse Reactions: Allergies Allergy/AdvReac Type Severity Reaction Status Date / Time No Known Drug Allergies Allergy Verified 06/03/21 14:08 - MEDICATIONS Home Medications: Ambulatory Orders Medication Instructions Recorded Confirmed Levothyroxine Sodium [Synthroid] 100 mcg PO QDAC 01/15/19 06/03/21 Felodipine [Felodipine ER] 2.5 mg PO DAILY 01/17/19 06/03/21 Glucosamine Sulfate 500 mg PO DAILY 01/17/19 06/03/21 Acetaminophen [Tylenol] 650 mg PO Q4H PRN 06/03/21 06/03/21 Calcium Carbonate [Tums (Calcium 500 mg PO TIDWM 06/03/21 06/03/21 Carbonate 500mg)] Cholecalciferol (Vitamin D3) 400 unit PO DAILY 06/03/21 06/03/21 [Vitamin D3] metFORMIN [Glucophage] 500 mg PO BIDWM 06/03/21 06/03/21 Apixaban [Eliquis] 10 mg PO BID #8 tablet 06/06/21 Zinc Oxide 20% Oint [Zinc Oxide] 1 applic TOP PRN PRN 06/06/21 - LABS Result Diagrams: 06/06/21 05:26 06/06/21 05:26"
[2021-06-06 13:11] VITALS: BP 125/62
== END 2021-06-06 13:30 | disposition home or self-care (01) | DRG 175 ==
LOC: EDUNIT# → ED 13:49 → MS3 16:12
PROVIDERS: ADMIT Specialist; ATTEND Specialist
DX: I26.99 Other pulmonary embolism without acute cor pulmonale (principal); G93.41 Metabolic encephalopathy; N17.9 Acute kidney failure, unspecified; F03.90 Unspecified dementia, unspecified severity, without behavioral disturbance, psychotic disturbance, mood disturbance, and anxiety; I69.951 Hemiplegia and hemiparesis following unspecified cerebrovascular disease affecting right dominant side; E87.0 Hyperosmolality and hypernatremia; I69.954 Hemiplegia and hemiparesis following unspecified cerebrovascular disease affecting left non-dominant side; I10 Essential (primary) hypertension; R09.02 Hypoxemia; E03.9 Hypothyroidism, unspecified; Z20.822 Contact with and (suspected) exposure to COVID-19; Z79.899 Other long term (current) drug therapy; K80.20 Calculus of gallbladder without cholecystitis without obstruction; I25.2 Old myocardial infarction; I11.9 Hypertensive heart disease without heart failure; M19.90 Unspecified osteoarthritis, unspecified site; R53.83 Other fatigue; G89.29 Other chronic pain; M54.9 Dorsalgia, unspecified
CPT/HCPCS: 36415; 51701; 70450; 71045; 71275; 74177; 80048; 80053; 81003; 82550; 83605; 83690; 83880; 84443; 84484; 85025; 87631; 93005; 94761; 97161; 99283; 99285; A9270; J1650; J7120; Q9967; 0202U; 81001; 87086

== ENCOUNTER 2021-12-07 14:38 | Outpatient (CLI) | payer MEDICARE, OTHER | END 2021-12-07 14:39 | disposition critical access hospital (66) | LOC: EMS 14:38 | DX: R41.82 Altered mental status, unspecified (principal) | CPT/HCPCS: A0425; A0427 ==

== ENCOUNTER 2021-12-07 14:56 | Emergency (ER) | payer MEDICARE, OTHER ==
--- NOTE | 2021-12-07 15:17 | ED Physician Documentation ---
PD HPI FOCAL NEURO - Stated complaint Stated Complaint: AMS - Chief complaint Chief Complaint: Neuro - History obtained from History obtained from: EMS - Additional information Additional information: 89-year-old woman sent from [facility] for evaluation of aphasia starting this morning. She is unable to provide any history. Her nurse practitioner called me prior to arrival and stated the last time this happened it was due to a PE and she was admitted here for that then. That was in May. 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 - Present Medications Home Medications: Ambulatory Orders Medication Instructions Recorded Confirmed Levothyroxine Sodium [Synthroid] 100 mcg PO QDAC 01/15/19 06/03/21 Felodipine [Felodipine ER] 2.5 mg PO DAILY 01/17/19 06/03/21 Glucosamine Sulfate 500 mg PO DAILY 01/17/19 06/03/21 Acetaminophen [Tylenol] 650 mg PO Q4H PRN 06/03/21 06/03/21 Calcium Carbonate [Tums (Calcium 500 mg PO TIDWM 06/03/21 06/03/21 Carbonate 500mg)] Cholecalciferol (Vitamin D3) 400 unit PO DAILY 06/03/21 06/03/21 [Vitamin D3] metFORMIN [Glucophage] 500 mg PO BIDWM 06/03/21 06/03/21 Apixaban [Eliquis] 10 mg PO BID #8 tablet 06/06/21 Zinc Oxide 20% Oint [Zinc Oxide] 1 applic TOP PRN PRN 06/06/21 Cefdinir 300 mg PO BID #20 cap 12/07/21 - Allergies Allergies/Adverse Reactions: Allergies Allergy/AdvReac Type Severity Reaction Status Date / Time No Known Drug Allergies Allergy Verified 12/07/21 15:05 - Social History Does the pt smoke?: No Smoking Status: Unknown if ever smoked Does the pt drink ETOH?: No Does the pt have substance abuse?: No - Immunizations Immunizations are current?: Yes - POLST Patient has POLST: Yes POLST Status: Full Code PD ED PE NORMAL - Vitals Vital signs reviewed: Yes - General General: Other (She seems alert and makes eye contact but does not follow commands. She is moving all extremities and intermittently will follow very simple commands in all extremities.) - HEENT HEENT: PERRL, EOMI - Neck Neck: Supple, no meningeal sign, No bony TTP - Cardiac Cardiac: RRR, No murmur - Respiratory Respiratory: No respiratory distress, Clear bilaterally - Abdomen Abdomen: Soft, Non tender - Back Back: No CVA TTP, No spinal TTP - Derm Derm: Normal color, Warm and dry - Extremities Extremities: No edema, No calf tenderness / cord - Neuro Neuro: No motor deficit Eye Opening: Spontaneous Motor: Localizes to Pain Verbal: None GCS Score: 10 Results - Vitals Vitals: Vital Signs - 24 hr 12/07/21 12/07/21 14:59 17:11 Temperature 37.0 C Heart Rate 84 108 H Respiratory 16 20 Rate Blood Pressure 133/86 H 128/74 O2 Saturation 94 93 Oxygen O2 Source [] Room air O2 Source Room air - EKG (time done) 1525 Rate: Rate (enter#) (87) Rhythm: NSR (w pac) Gregory: Normal Intervals: Normal CT QRS: Normal Ischemia: Q waves (inferior). No: ST elevation c/w ischemia, ST depression Computer interpretation: Agree with computer - Labs Labs: Laboratory Tests 12/07/21 12/07/21 12/07/21 15:14 15:14 15:14 WBC 7.5 RBC 4.71 Hgb 13.8 Hct 42.7 MCV 90.7 MCH 29.3 MCHC 32.3 RDW 15.0 Plt Count 184 MPV 8.7 Neut # (Auto) 4.6 Lymph # (Auto) 1.8 [place] # (Auto) 0.8 Eos # (Auto) 0.2 Baso # (Auto) 0.0 Absolute Nucleated RBC 0.00 Nucleated RBC % 0.0 Sodium 138 Potassium 3.7 Chloride 100 L Carbon Dioxide 29 Anion Gap 9.0 BUN 17 Creatinine 0.8 Estimated GFR (MDRD) 68 L Glucose 137 H Calcium 9.4 Total Bilirubin 0.7 AST 14 ALT 14 Alkaline Phosphatase 60 Troponin I High Sens 8.0 B-Natriuretic Peptide Total Protein 6.9 Albumin 3.7 Globulin 3.2 Albumin/Globulin Ratio 1.2 Urine Color Urine Clarity Urine pH Ur Specific [place] Urine Protein Urine Glucose (UA) Urine Ketones Urine Occult Blood Urine Nitrite Urine Bilirubin Urine Urobilinogen Ur Leukocyte Esterase Urine RBC Urine WBC Ur Squamous Epith Cells Urine Bacteria Ur Microscopic Review Urine Culture Comments Urine Opiates Screen Ur Oxycodone Screen Urine Methadone Screen Ur Propoxyphene Screen Ur Barbiturates Screen Ur Tricyclics Screen Ur Phencyclidine Scrn Ur Amphetamine Screen U Methamphetamines Scrn U Benzodiazepines Scrn Urine Cocaine Screen U Cannabinoids Screen Ethyl Alcohol 12/07/21 12/07/21 12/07/21 15:14 15:14 16:20 WBC RBC Hgb Hct MCV MCH MCHC RDW Plt Count MPV Neut # (Auto) Lymph # (Auto) [place] # (Auto) Eos # (Auto) Baso # (Auto) Absolute Nucleated RBC Nucleated RBC % Sodium Potassium Chloride Carbon Dioxide Anion Gap BUN Creatinine Estimated GFR (MDRD) Glucose Calcium Total Bilirubin AST ALT Alkaline Phosphatase Troponin I High Sens B-Natriuretic Peptide 30 Total Protein Albumin Globulin Albumin/Globulin Ratio Urine Color YELLOW Urine Clarity HAZY Urine pH 7.0 Ur Specific [place] 1.020 Urine Protein NEGATIVE Urine Glucose (UA) NEGATIVE Urine Ketones NEGATIVE Urine Occult Blood MODERATE H Urine Nitrite POSITIVE H Urine Bilirubin NEGATIVE Urine Urobilinogen 0.2 (NORMAL) Ur Leukocyte Esterase NEGATIVE Urine RBC 11-25 H Urine WBC 4-5 Ur Squamous Epith Cells RARE Squamous Urine Bacteria Many H Ur Microscopic Review INDICATED Urine Culture Comments INDICATED Urine Opiates Screen NEGATIVE Ur Oxycodone Screen NEGATIVE Urine Methadone Screen NEGATIVE Ur Propoxyphene Screen NEGATIVE Ur Barbiturates Screen NEGATIVE Ur Tricyclics Screen NEGATIVE Ur Phencyclidine Scrn NEGATIVE Ur Amphetamine Screen NEGATIVE U Methamphetamines Scrn NEGATIVE U Benzodiazepines Scrn NEGATIVE Urine Cocaine Screen NEGATIVE U Cannabinoids Screen NEGATIVE Ethyl Alcohol < 5.0 - Rads (name of study) CT head showing atrophy and chronic microvascular ischemic changes without evidence of acute process. Radiology: EMP read contemporaneously CT PE Radiology: EMP read contemporaneously PD MEDICAL DECISION MAKING - ED course ED course: 89-year-old woman presents with an acute encephalopathy. Only pertinent positive finding here is pyuria which mandates treatment given patient's inability to communicate. No other pertinent positive findings on work-up including concern for PE given similar symptoms with last diagnosis of PE. Normally she would be admitted to the hospital. This hospital and every surrounding hospital is full. As such I discussed the case by phone with TOOL DESIGN ENGINEER Maryellen Rodriguez who knows the patient very well as well as her goals of care and recommends discharge back to the facility. Departure - Departure Disposition: 01 Home, Self Care Clinical Impression: Encephalopathy UTI (urinary tract infection) Qualifiers: Urinary tract infection type: site unspecified Hematuria presence: without hematuria Qualified Code(s): N39.0 - Urinary tract infection, site not specified Condition: Good Record reviewed to determine appropriate education?: Yes Instructions: ED UTI Cystitis Female Prescriptions: Cefdinir 300 mg PO BID #20 cap Comments: Anita was seen today for an acute encephalopathy. Only pertinent positive finding was pyuria. She received Rocephin here. Maryellen Rodriguez knows about the course of care.
[2021-12-07 15:20] LABS: BASOPHILS % (AUTO) 0.4 %; EOSINOPHILS # (AUTO) 0.2 10^3/uL (0.0-0.7); EOSINOPHILS % (AUTO) 2.8 %; HCT - HEMATOCRIT 42.7 % (37.0-47.0); HGB - HEMOGLOBIN 13.8 g/dL (12.0-16.0); LYMPHOCYTES # (AUTO) 1.8 10^3/uL (1.5-3.5); LYMPHOCYTES % (AUTO) 24.3 %; MEAN CORPUSCULAR HEMOGLOBIN 29.3 pg (27.0-31.0); MEAN CORPUSCULAR HGB CONC 32.3 g/dL (32.0-36.0); MEAN CORPUSCULAR VOLUME 90.7 fL (81.0-99.0); MEAN PLATELET VOLUME 8.7 fL (7.9-10.8); MONOCYTES # (AUTO) 0.8 10^3/uL (0.0-1.0); MONOCYTES % (AUTO) 10.4 %; NEUTROPHILS # (AUTO) 4.6 10^3/uL (1.5-6.6); NEUTROPHILS % (AUTO) 61.7 %; PLT - PLATELET COUNT 184 10^3/uL (130-450); RED BLOOD COUNT 4.71 10^6/uL (4.20-5.40); WHITE BLOOD COUNT 7.5 x10^3/uL (4.8-10.8)
[2021-12-07 15:40] LABS: ALBUMIN 3.7 g/dL (3.2-5.5); ALBUMIN/GLOBULIN RATIO 1.2 (1.0-2.2); BILIRUBIN,TOTAL 0.7 mg/dL (0.2-1.0); CALCIUM 9.4 mg/dL (8.5-10.3); CREATININE 0.8 mg/dL (0.4-1.0); POTASSIUM 3.7 mmol/L (3.5-5.0); TOTAL PROTEIN 6.9 g/dL (6.7-8.2)
[2021-12-07] MEDS ORDERED: IOVERSOL 320 100 ML VIAL IVP ONE ×2 (15:53→19:00)
[2021-12-07] MEDS ORDERED: HALOPERIDOL 5 MG/ML VIAL IVP STA (15:55)
[2021-12-07 16:36] LABS: MUDS CUTOFF CONCENTRATIONS CUTOFF CONC BELOW:
[2021-12-07 16:39] LABS: BILIRUBIN,URINE NEGATIVE (NEGATIVE); GLUCOSE, URINE (UA) NEGATIVE (NEGATIVE); KETONES,URINE (UA) NEGATIVE (NEGATIVE); LEUKOCYTE ESTERASE, URINE NEGATIVE (NEGATIVE); NITRITE,URINE POSITIVE (NEGATIVE); OCCULT BLOOD,URINE MODERATE (NEGATIVE); PROTEIN,URINE NEGATIVE (NEGATIVE); UROBILINOGEN,URINE 0.2 (NORMAL) E.U./dL (NORMAL)
[2021-12-07 16:41] LABS: CLARITY,URINE HAZY (CLEAR)
[2021-12-07 16:47] LABS: BACTERIA,URINE Many /HPF (None Seen); SQUAMOUS EPITHELIAL CELL,UR RARE Squamous (<= Few)
[2021-12-07 16:49] LABS: AMPHETAMINE SCREEN,URINE NEGATIVE (NEGATIVE); BARBITURATE SCREEN,UR NEGATIVE (NEGATIVE); BENZODIAZEPINES SCREEN, URINE NEGATIVE (NEGATIVE); COCAINE SCREEN URINE NEGATIVE (NEGATIVE); METHADONE SCREEN, URINE NEGATIVE (NEGATIVE); METHAMPHETAMINES SCREEN, URINE NEGATIVE (NEGATIVE); OPIATE SCREEN, URINE NEGATIVE (NEGATIVE); OXYCODONE SCREEN, URINE NEGATIVE (NEGATIVE); PROPOXYPHENE SCREEN, URINE NEGATIVE (NEGATIVE); THC CANNABINOID SCREEN, URINE NEGATIVE (NEGATIVE); TRICYCLIC ANTIDEPRESSANT,URINE NEGATIVE (NEGATIVE)
--- NOTE | 2021-12-07 16:54 | CT Report ---
PROCEDURE: HEAD WO INDICATIONS: ams TECHNIQUE: Noncontrast 4.5 mm thick angled axial sections acquired from the foramen magnum to the vertex. For r adiation dose reduction, the following was used: automated exposure control, adjustment of mA and/or kV according to patient size. COMPARISON: CT head 06/03/2021, CTA head and neck 518 2 FINDINGS: Image quality: Excellent. The ventricular system and cortical sulci demonstrate atrophy, consistent for patient's stated age. There are areas of hypodensity in the periventricular and subcortical white matter. There is no acut e intra or extra-axial fluid collection. No acute hemorrhage, mass lesion or midline shift. Brainst em is unremarkable. Globes are symmetrical. Sinuses are aerated. Osseous structures are intact. IMPRESSION: 1. No acute intracranial process. 2. Moderate atrophy and chronic microvascular ischemic changes. Reviewed by: Adri Pablo MD on 12/07/2021 4:52 PM PDT Approved by: Adri Pablo MD on 12/07/2021 4:52 PM PDT Station ID: [id number]
[2021-12-07] MEDS ORDERED: cefTRIAXone 1 GM in SODIUM CHLORIDE 0.9% MINIBAG 100 ML IV STA (17:02)
[2021-12-07] MEDS ORDERED: SODIUM CHLORIDE 0.9% 1,000 ML IV STA (17:02)
--- NOTE | 2021-12-07 17:16 | CT Report ---
PROCEDURE: CT chest angiogram with contrast INDICATIONS: dyspnea pe protocol CONTRAST: IV CONTRAST: Optiray 320 ml: 80 PO CONTRAST: *NO PO CONTRAST TECHNIQUE: After the administration of intravenous contrast, 2 mm axial images were acquired from the pulmonary apices to the posterior costophrenic angles during the arterial phase. In addition, 1 mm lung kernel and 5 mm soft tissue kernel reconstructions were performed. For radiation dose reduction, the followi ng was used: automated exposure control, adjustment of mA and/or kV according to patient size. COMPARISON: 06/03/2021 FINDINGS: Image quality: Excellent. Pulmonary arteries: Pulmonary arteries are normal in size, and demonstrate no intraluminal filling d efects to suggest central pulmonary embolism. Lungs and pleura: Lungs are clear. No pleural effusions or pneumothorax. Central and peripheral ai rways are patent. Scattered bibasilar atelectasis or scarring noted. Mediastinum: Heart size is normal, without pericardial effusion. No mediastinal or hilar adenopathy . Thoracic aorta is normal in caliber and enhancement. Esophagus is normal in caliber, without hiat al hernia. Bones and chest wall: No suspicious bony lesions. Ribs and thoracic spine appear intact throughout. No axillary or supraclavicular adenopathy. The thyroid is normal in size and there are no incident al findings. Bilateral glenohumeral joint osteoarthritis present. Abdomen: Visualized upper abdominal solid organs appear normal in the early arterial phase of enhanc ement. Several stones noted layering dependently in the gallbladder. IMPRESSION: 1. No evidence of pulmonary embolism, aortic dissection or aneurysm. 2. Scattered bibasilar atelectasis or scarring. 3. Stable cholelithiasis Reviewed by: Israel Delgado MD on 12/07/2021 4:15 PM AKDT Approved by: Israel Delgado MD on 12/07/2021 4:15 PM AKDT Station ID: [id number]
[2021-12-07] MEDS ORDERED: cefTRIAXone 1 GM VIAL ONE (17:17)
[2021-12-07 18:53] VITALS: BP 128/90
== END 2021-12-07 18:45 | disposition home or self-care (01) ==
LOC: EDUNIT# → ED 14:56
DX: G93.40 Encephalopathy, unspecified (principal); N39.0 Urinary tract infection, site not specified
CPT/HCPCS: 36415; 51701; 70450; 71275; 80053; 80306; 81001; 83880; 84484; 85025; 87086; 93005; 96374; 96375; 99281; 99284; G0480; Q9967; 80320; 81003

== ENCOUNTER 2021-12-07 18:16 | Outpatient (CLI) | payer MEDICARE, OTHER | END 2021-12-07 18:17 | disposition home or self-care (01) | LOC: EMS 18:16 | PROVIDERS: ATTEND Emergency Medicine | DX: F03.90 Unspecified dementia, unspecified severity, without behavioral disturbance, psychotic disturbance, mood disturbance, and anxiety (principal); R41.0 Disorientation, unspecified | CPT/HCPCS: A0425; A0428 ==

== ENCOUNTER 2021-12-28 05:46 | Outpatient (CLI) | payer MEDICARE, OTHER | END 2021-12-28 05:47 | disposition EMS.NT | LOC: EMS 05:46 | DX: Z03.89 Encounter for observation for other suspected diseases and conditions ruled out (principal) ==

== ENCOUNTER 2022-01-05 12:19 | Outpatient (CLI) | payer MEDICARE, OTHER | END 2022-01-05 12:20 | disposition critical access hospital (66) | LOC: EMS 12:19 | DX: S50.12XA Contusion of left forearm, initial encounter (principal); M79.632 Pain in left forearm; R53.1 Weakness; X58.XXXA Exposure to other specified factors, initial encounter; Y92.099 Unspecified place in other non-institutional residence as the place of occurrence of the external cause | CPT/HCPCS: A0425; A0429 ==

== ENCOUNTER 2022-01-05 12:20 | Emergency (ER) | payer MEDICARE, OTHER ==
--- NOTE | 2022-01-05 12:30 | ED Physician Documentation ---
History of Present Illness - Stated complaint Stated Complaint: ARM BRUSING/FALL - Additonal information Additional information: 89-year-old female who has a history most significant for HTN, dementia, previous CVA with residual left sided deficits and frequent falls presents yudy rgency department via EMS for evaluation of unexplained bruising on her left arm. The care staff at her facility noted the bruising this morning though they are not able to remember any recent fall events. Patient is typically able to assist with transfer from bed to wheelchair or commode but due to the pain in the arm was unable to do so today.Reportedly anticoagulated on coumadin. Patient is a full code Seen most recently for encephalopathy thought to be secondary to a urinary tract infection. No recent mental status changes that the nursing staff are aware of. No noted fevers. 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 - Present Medications Home Medications: Ambulatory Orders Medication Instructions Recorded Confirmed Levothyroxine Sodium [Synthroid] 100 mcg PO QDAC 01/15/19 01/05/22 Felodipine [Felodipine ER] 2.5 mg PO DAILY 01/17/19 01/05/22 Glucosamine Sulfate 500 mg PO DAILY 01/17/19 01/05/22 Acetaminophen [Tylenol] 650 mg PO Q4H PRN 06/03/21 01/05/22 Calcium Carbonate [Tums (Calcium 500 mg PO TIDWM 06/03/21 01/05/22 Carbonate 500mg)] Cholecalciferol (Vitamin D3) 400 unit PO DAILY 06/03/21 01/05/22 [Vitamin D3] metFORMIN [Glucophage] 500 mg PO BIDWM 06/03/21 01/05/22 Apixaban [Eliquis] 10 mg PO BID #8 tablet 06/06/21 01/05/22 Zinc Oxide 20% Oint [Zinc Oxide] 1 applic TOP PRN PRN 06/06/21 01/05/22 Warfarin [Coumadin] 4 mg PO 1400 01/05/22 01/05/22 - Allergies Allergies/Adverse Reactions: Allergies Allergy/AdvReac Type Severity Reaction Status Date / Time No Known Drug Allergies Allergy Verified 12/07/21 15:05 - Social History Does the pt smoke?: No Smoking Status: Unknown if ever smoked Does the pt drink ETOH?: No Does the pt have substance abuse?: No - Immunizations Immunizations are current?: Yes - POLST Patient has POLST: Yes POLST Status: Full Code PD ED PE EXPANDED - General General: Alert - Cardiac Cardiac: Irregularly irregular, Radial strong equal, Pedal strong equal - Respiratory Respiratory: Clear to ausultation maurice. No: Distress, Labored - Abdomen Abdomen: Normal Bowel sounds. No: Tender to palpation - Derm Derm: Bruising (Extensive bruising and swelling on the left forearm from the distal elbow to the hand. No open sores or lesions) - Extremities Extremities: Left arm (significant swelling,e cchymosis left forearm distal elbow to wrist. TTP. no deformity. 2+ radial pulse) - Neuro Neuro: Confused, CNII-XII intact - GCS Eye Opening: Spontaneous Motor: Obeys Commands Verbal: Confused Total: 14 Results - Vitals Vitals: Vital Signs - 24 hr 01/05/22 12:25 Temperature 36.5 C Heart Rate 97 Respiratory 18 Rate Blood Pressure 171/89 H O2 Saturation 97 Oxygen O2 Source [] Room air O2 Source Nasal cannula - Labs Labs: Laboratory Tests 01/05/22 01/05/22 01/05/22 12:31 12:31 12:31 WBC 10.8 RBC 5.49 H Hgb 15.9 Hct 48.9 H MCV 89.1 MCH 29.0 MCHC 32.5 RDW 14.7 Plt Count 237 MPV 9.6 Neut # (Auto) 7.9 H Lymph # (Auto) 1.8 [place] # (Auto) 0.9 Eos # (Auto) 0.1 Baso # (Auto) 0.0 Absolute Nucleated RBC 0.00 Nucleated RBC % 0.0 PT 109.0 H INR 9.8 H* Sodium 139 Potassium 3.8 Chloride 99 L Carbon Dioxide 26 Anion Gap 14.0 H BUN 48 H Creatinine 1.7 H Estimated GFR (MDRD) 28 L Glucose 176 H Calcium 10.6 H 01/05/22 14:08 WBC RBC Hgb Hct MCV MCH MCHC RDW Plt Count MPV Neut # (Auto) Lymph # (Auto) [place] # (Auto) Eos # (Auto) Baso # (Auto) Absolute Nucleated RBC Nucleated RBC % PT INR Sodium 139 Potassium 3.6 Chloride 104 Carbon Dioxide 23 Anion Gap 12.0 BUN 44 H Creatinine 1.5 H Estimated GFR (MDRD) 33 L Glucose 157 H Calcium 9.4 - Rads (name of study) CT head Radiology: Final report received (No acute intracranial findings) CT cervical Radiology: Final report received (No CT evidence of acute traumatic cervical spi ne injury) left elbow Radiology: Final report received (Mild soft tissue edema is present possibly related to infection or inflammation. No visualized acute fracture or dislocation) left wrist Radiology: Final report received (No acute findings) PD MEDICAL DECISION MAKING - ED course Complexity details: reviewed results, re-evaluated patient, considered differential, d/w patient, d/w organizational development consultant (Sukumar) ED course: 89-year-old female who has a history of worsening dementia is brought to the emergency department for evaluation of unexplained bruising on her left arm. She is on Coumadin secondary to a history of pulmonary embolism last year. It is unknown if she fell. In speaking with her primary care provider Maryellen Mejía the patient has had worsening dementia and difficulty eating and drinking over the last few weeks. She is scheduled to transfer to the memory care side of her assisted living facility, Sunday. On presentation here the patient is certainly demented but has no obvious focal neurodeficits. Screening CT of the head and cervical spine were without acute findings. We did obtain an INR which is markedly elevated at 8.9. However given lack of any bleeding crisis will defer vitamin K administration at this time. I discussed this with her primary care provider. I made the recommendation to hold Coumadin for 48 hours recheck her INR and resume if appropriate. Also of note and her screening labs was acute kidney injury with an elevated BUN at 48 and a creatinine of 1.7. Typically she has normal BUN and creatinine. Here in the [facility] department she is administered 1 L of crystalloid and her BMP was rechecked. Unfortunately it was checked only senior living through the IV fluids though it does seem to be trending in the correct direction. Thus the elevated BUN and creatinine are thought to be consistent with worsening p.o. intake. Again PCP was advised to have her screening labs rechecked early next week. At this time there is no emergent medical condition warranting admission to the hospital. Patient will be discharged back to her memory care facility in stable condition. Departure - Departure Disposition: 01 Home, Self Care Clinical Impression: Supratherapeutic INR, Acute kidney injury, Dehydration Dementia Qualifiers: Dementia type: unspecified type Dementia behavioral disturbance: without behavioral disturbance Qualified Code(s): F03.90 - Unspecified dementia without behavioral disturbance Contusion of left arm Qualifiers: Encounter type: initial encounter Qualified Code(s): S40.022A - Contusion of left upper arm, initial encounter Comments: Anita was advised to come to the emergency department for evaluation of unexplained bruising on her left arm. The x-rays of her left arm do not show any broken bones. She certainly has significant contusion and swelling which will simply heal over the next few weeks. Because were uncertain if she has had any falling events a CT of her head and neck were completed and did not show any findings of bruising or bleeding in the brain or fracture of her cervical spine. We did obtain screening labs for her today including an INR as she is receiving Coumadin therapy. Her INR is supratherapeutic at 8.9. However because she does not have any evidence of anemia or bleeding crisis the recommendation at this time is to simply hold her Coumadin for the next 2 days and then recheck her INR. If stable and improved then the Coumadin can be resumed. Her labs also show that she is significantly dehydrated as she has some abnormal kidney function. Here in the emergency department we did give her some IV fluids. It is important that she be encouraged to eat and drink more as worsening dehydration can cause behavior changes. Her screening electrolytes should be reevaluated this upcoming week on Sunday or Sunday. If at any point her symptoms are worsening, she develops fevers, has slurred speech facial droop or you have any other emergent concerns and please return to the ER for repeat evaluation
[2022-01-05 12:38] LABS: BASOPHILS % (AUTO) 0.4 %; EOSINOPHILS # (AUTO) 0.1 10^3/uL (0.0-0.7); EOSINOPHILS % (AUTO) 1.2 %; HCT - HEMATOCRIT 48.9 % (37.0-47.0); HGB - HEMOGLOBIN 15.9 g/dL (12.0-16.0); LYMPHOCYTES # (AUTO) 1.8 10^3/uL (1.5-3.5); LYMPHOCYTES % (AUTO) 16.3 %; MEAN CORPUSCULAR HGB CONC 32.5 g/dL (32.0-36.0); MEAN CORPUSCULAR VOLUME 89.1 fL (81.0-99.0); MEAN PLATELET VOLUME 9.6 fL (7.9-10.8); MONOCYTES # (AUTO) 0.9 10^3/uL (0.0-1.0); MONOCYTES % (AUTO) 8.2 %; NEUTROPHILS # (AUTO) 7.9 10^3/uL (1.5-6.6); NEUTROPHILS % (AUTO) 73.5 %; PLT - PLATELET COUNT 237 10^3/uL (130-450); RED BLOOD COUNT 5.49 10^6/uL (4.20-5.40); RED CELL DISTRIBUTION WIDTH 14.7 % (12.0-15.0); WHITE BLOOD COUNT 10.8 x10^3/uL (4.8-10.8)
[2022-01-05 12:45] LABS: CALCIUM 10.6 mg/dL (8.5-10.3); CREATININE 1.7 mg/dL (0.4-1.0); POTASSIUM 3.8 mmol/L (3.5-5.0)
[2022-01-05 13:00] LABS: INR 9.8 (0.8-1.2)
--- NOTE | 2022-01-05 13:07 | XRAY Report ---
PROCEDURE: Elbow 3 View LT INDICATIONS: unexplained bruising TECHNIQUE: 3 views of the elbow were acquired. COMPARISON: X-ray wrist 01/05/2022. FINDINGS: Bones: No fractures or dislocations. No suspicious bony lesions. Soft tissues: No elbow joint effusion. No suspicious soft tissue calcifications. Mild soft tissue edema is present. IMPRESSION: Mild soft tissue edema is present possibly related to infection or inflammation. No visualized acute fracture or dislocation. However, occult injury cannot be excluded. Recommend short interval imaging follow-up in 7-10 days as clinically indicated for additional evaluation. Reviewed by: Adri Pablo MD on 01/05/2022 1:06 PM PDT Approved by: Adri Pablo MD on 01/05/2022 1:06 PM PDT Station ID: [id number]
--- NOTE | 2022-01-05 13:13 | CT Report ---
PROCEDURE: HEAD WO INDICATIONS: unexplained bruising; anticoagulated. ? fall TECHNIQUE: Noncontrast 4.5 mm thick angled axial sections acquired from the foramen magnum to the vertex. For r adiation dose reduction, the following was used: automated exposure control, adjustment of mA and/or kV according to patient size. COMPARISON: Multiple, most recent 12/07/2021 FINDINGS: No acute intracranial hemorrhage, abnormal extra axial fluid collection, mass effect or midline shift . Advanced global cerebral volume loss and chronic microvascular ischemic changes as seen on multiple prior studies. Kenny-white matter differentiation is maintained without CT evidence of an acute large territory infarct. No acute orbital abnormality. Paranasal sinuses and mastoid air cells predominant ly clear. IMPRESSION: No acute intracranial finding. Reviewed by: Lobito Fournier MD on 01/05/2022 1:12 PM PDT Approved by: Lobito Fournier MD on 01/05/2022 1:12 PM PDT Station ID: [id number]
[2022-01-05] MEDS ORDERED: SODIUM CHLORIDE 0.9% 1,000 ML IV STA (13:15)
--- NOTE | 2022-01-05 13:17 | CT Report ---
PROCEDURE: CERVICAL SPINE WO INDICATIONS: Unexplained bruising; anticoagulated; questionable fall history TECHNIQUE: Noncontrast 3 mm thick sections acquired from the skull base to the T4 level. Sagittal and coronal r eformats were then constructed. For radiation dose reduction, the following was used: automated exp osure control, adjustment of mA and/or kV according to patient size. COMPARISON: None. FINDINGS: Image quality: Excellent. Bones: No fractures or dislocations. Extensive degenerative changes. Visualized superior ribs are i ntact. Soft tissues: Prevertebral soft tissues are normal in thickness. No paravertebral hematomas. No ap ical pneumothoraces. IMPRESSION: No CT evidence of acute traumatic cervical spine injury. Reviewed by: Lobito Fournier MD on 01/05/2022 1:16 PM PDT Approved by: Lobito Fournier MD on 01/05/2022 1:16 PM PDT Station ID: [id number]
--- NOTE | 2022-01-05 13:22 | XRAY Report ---
PROCEDURE: Wrist 3 View LT INDICATIONS: Unexplained bruising TECHNIQUE: 3 views of the wrist were acquired. COMPARISON: None FINDINGS: No fracture or dislocation. Severe osteoarthritic changes of the first and second CMC joints and jake caphe joint. No radiopaque foreign body. IMPRESSION: No acute finding. Reviewed by: Lobito Fournier MD on 01/05/2022 1:21 PM PDT Approved by: Lobito Fournier MD on 01/05/2022 1:21 PM PDT Station ID: [id number]
[2022-01-05 14:23] LABS: CALCIUM 9.4 mg/dL (8.5-10.3); CREATININE 1.5 mg/dL (0.4-1.0); POTASSIUM 3.6 mmol/L (3.5-5.0)
[2022-01-05 15:12] VITALS: BP 145/76
== END 2022-01-05 15:12 | disposition home or self-care (01) ==
LOC: EDUNIT# → ED 12:20
DX: F03.90 Unspecified dementia, unspecified severity, without behavioral disturbance, psychotic disturbance, mood disturbance, and anxiety (principal); S40.022A Contusion of left upper arm, initial encounter; X58.XXXA Exposure to other specified factors, initial encounter; Z91.81 History of falling; I10 Essential (primary) hypertension; R79.1 Abnormal coagulation profile; E86.0 Dehydration
CPT/HCPCS: 36415; 80048; 85025; 85610; 96360; 99281

== ENCOUNTER 2022-01-05 15:08 | Outpatient (CLI) | payer MEDICARE, OTHER | END 2022-01-05 23:59 | disposition home or self-care (01) | LOC: EMS 15:08 | PROVIDERS: ATTEND Registered Nurse | DX: R41.0 Disorientation, unspecified (principal); S50.12XA Contusion of left forearm, initial encounter; X58.XXXA Exposure to other specified factors, initial encounter | CPT/HCPCS: A0425; A0428 ==